=== PATIENT | female | born 1930 | race Caucasian/White ===

== ENCOUNTER 2017-10-23 18:38 | Inpatient (IN) | payer OTHER ==
[2017-10-23] VITALS (7 sets, daily range): BP systolic 142–171; BP diastolic 63–75
[~2017-10-23] VITALS: Ht 162.5 cm; Wt 58.2 kg
--- NOTE | ~2017-10-23 | EKG ---
[place], [place] ELECTROCARDIOGRAM REPORT NAME: LUCY ZULETA UNIT #: [id number] ROOM: 524 DOCTOR: BRITTANY DRAFT REPORT BIRTHDATE: [birth year] [facility] Test Date: 2017-10-24 Test Time: 01:25:04 Pat Name: LUCY ZULETA Department: Room: Gender: F [employer]er: : 1930 Requested By: DEBI BALBUENA Order Number: [id number] Reading MD: Perla Gonzalez MD Measurements Intervals [place] Rate: 94 P: 101 TN: 101 QRS: 44 QRSD: 87 T: -89 QT: 396 QTc: 496 Interpretive Statements Sinus rhythm Short TN interval Abnormal R-wave progression, late transition Probable left ventricular hypertrophy Abnormal T, consider ischemia, diffuse leads Electronically Signed On 10-25-2017 9:37:54 PDT by Perla Gonzalez MD CM:EKGRPT:ELECTROCARDIOGRAM REPORT [id number] DEBI SOTO DRAFT REPORT DEBI BALBUENA MD
--- NOTE | ~2017-10-23 | CON ---
[place], [place] REPORT OF CONSULTATION NAME: LUCY ZULETA UNIT #: [id number] ROOM: 524 DOCTOR: JEREMIAH OLIVAS MDKEVIN BIRTHDATE: [birth year] DOS: 10/25/2017 PULMONARY CONSULTATION, EVALUATION, MANAGEMENT CONSULTATION REQUESTED BY: Lady Hale DO REASON FOR CONSULTATION: Abnormal CT scan finding of respiratory failure. HISTORY OF PRESENT ILLNESS: An 86-year-old white female patient unable to give me any history at this time. The patient has been sleeping. The history essentially continued for this patient in this document is review of the medical record by the other physician documentation as well as a nurse's notes. She has been admitted to the hospital. The patient was brought to the Emergency Room on 10/24/2017 as the patient has been noted with increased shortness of breath, noted with [facility]. She has been admitted to the hospital after she has a left hip fracture surgery that was done about 6 weeks ago. The patient was seen in this hospital and underwent CT scan of chest, abdomen and pelvis as well as the V/Q scan. She was noted with hypoxia and leukocytosis. The chest CT scan of the patient reported evidence of atelectasis and/or infiltration, occlusion left main stem bronchus. The patient has been reported with symptoms of coughing and shortness of breath. There were no symptoms of chest pain, hemoptysis reported. REVIEW OF SYSTEMS: Could not be completed since the patient is currently unable to give me any history at this time. PAST MEDICAL HISTORY: Reported as history of: 1. Chronic obstructive pulmonary disease. 2. History of general anxiety and depression. 3. Right breast cancer, the patient's lumpectomy details were unknown. PAST SURGICAL HISTORY: Reported as: 1. Bilateral cataract extraction with lens implantation. 2. Left hip replacement. 3. Resection of the large bowel, again details were unknown. 4. Right mastectomy. Further details were unknown. SOCIAL HISTORY: The patient was noted with history of tobacco use, which was discontinued in remote past. The details were unknown. There was no alcohol use, illicit drugs. FAMILY HISTORY: Unknown for both parents. MEDICATIONS: On admission noted use of albuterol with a nebulizer p.r.n. for wheezing, Coreg, Plavix, cyproheptadine, ferrous sulfate, Vicodin, Keppra, lorazepam, magnesium hydroxide, magnesium oxide, phenobarbital, and sertraline. ALLERGIES: REPORTED ALLERGY TO SULFA DRUGS. PHYSICAL EXAMINATION: [place], [place] REPORT OF CONSULTATION NAME: LUCY ZULETA UNIT #: [id number] ROOM: 524 DOCTOR: KEVIN HART MD BIRTHDATE: [birth year] GENERAL: An 86-year-old female patient who has been currently noted resting comfortably on the bed. Height of 5 feet 4 inches, weight 133 pounds, BMI 22.3. VITAL SIGNS: Normal temperature since admission. The respiratory rate recorded as 16-20, heart rate of 101-70, blood pressure 128/75-132/58. The pulse oxygen saturation of the patient recorded as 94% on 100% oxygen supplementation nasal cannula. Previous pulse ox saturation noted in the 70s. Pulse oxygen saturation this morning was recorded as 96%-93% on 8 liters on high flow nasal cannula. HEENT: Head was atraumatic. Eyes nonicterus. NECK: Supple. CARDIOVASCULAR: S1, S2 audible. LUNGS: Noted moderate decreased breath sounds bilaterally more on the left than the right side. ABDOMEN: Flat, soft, nontender. EXTREMITIES: There was no edema, clubbing, cyanosis. CENTRAL NERVOUS SYSTEM: Examination could not be done. MUSCULOSKELETAL: The sling noted in place for the patient for the recent right shoulder fracture. LABORATORY DATA: CBC on 10/23/2017, WBC count 17.1, hemoglobin 11.5, hematocrit 36.1, platelet count 407,000. Arterial blood gas for the patient done on 10/23/2017, pH of 7.47, pCO2 of 37, pO2 of 64 50% oxygen. The PT, PTT on 10/23/2017 was normal. BNP was noted 5002. CMP of the patient 10/23/2017, BUN 14, creatinine was normal. Troponin minimally elevated at 0.084. Blood culture 4 sets, which was done on 10/23/2017 so far, all the cultures were noted as negative. CMP this morning, BUN normal, creatinine was normal. Potassium 3.3. IMAGING STUDIES: Review of the radiology data: The chest x-ray that was done on 10/23/2017, just one view was noted left lower lobe area of infiltration with still volume loss. V/Q scan done on 10/24/2017 was noted low probability of pulmonary embolism. CT scan of the chest, abdomen and pelvis done for the patient. CT scan chest images were reported as volume loss with occlusion of the left lower lobe endobronchial subsegments with complete atelectasis at the present time. Right lung was noted as clear. Partial occlusion of the left upper lung bronchus was also noted. Unable to identify for this patient or correctly assess the patient's mediastinal because of lack of the IV contrast. IMPRESSION: 1. The patient who has been currently admitted to the hospital noted with volume loss in the left side with acute severe hypoxic respiratory failure with possibility of atelectasis, superimposed acute pneumonia cannot be excluded. Rule out endobronchial obstruction with mucus plug, purulent secretions and/or endobronchial lesion. 2. The patient with elderly age was also noted by physical appearance of protein-calorie malnutrition. 3. Recent fall with left hip fracture recently treated with surgery and currently treated with conservative treatment for the right shoulder fracture as well. 4. History of chronic obstructive pulmonary disease without evidence of acute exacerbation. [place], [place] REPORT OF CONSULTATION NAME: LUCY ZULETA UNIT #: [id number] ROOM: 524 DOCTOR: KEVIN HART MD BIRTHDATE: [birth year] PLAN OF MANAGEMENT: Continuation of the bronchodilator with oxygen supplementation. Consider reducing dose of diuretic at this time. There were no signs of overt congestive heart failure at this time reported and no pleural fluids. Continuation of current antibiotic. Monitor culture results. Strong consideration for bronchoscopy to be done after consultation primary care attending for this patient as well as discussion with family members about that for assessment of left endobronchial tree. Additional treatment changes will be ordered based on progression of illness. Bronchodilator will be continued to help mobilize secretions. Thank you for allowing me to participate in the care of this patient. KEVIN DANIELS MD CM:CONSTR:REPORT OF CONSULTATION 1139 10/26/17 0016 interface
--- NOTE | ~2017-10-23 | PROC NOTE ---
[place], [place] PROCEDURE NOTE NAME: LUCY ZULETA UNIT #: [id number] ROOM: 524 DOCTOR: JEREMIAH OLIVAS MD,KEVIN BIRTHDATE: [birth year] DOS: 10/28/2017 BRONCHOSCOPY NOTE PREOPERATIVE DIAGNOSES: Atelectasis of the left lung completely noted rather in the left lower lobe and possibly lingula. POSTOPERATIVE DIAGNOSES: Severe purulent pneumonia noted complete occlusion of the left main stem bronchus because of the purulent secretions. There were no endobronchial obstructive lesions. PROCEDURE DESCRIPTION: Informed consent obtained from the patient and family members. The patient brought to the OR and placed in supine position. Conscious sedation administered by the Anesthesia Department. After achieving proper sedation, airway introduced into the mouth. Bronchoscope advanced to the airway into laryngeal area. Epiglottis and vocal cords were seen. Vocal cords were moving symmetrically with movements. Bronchoscope advanced to vocal cord and Tracheal lumen. Tracheal lumen was identified, noted with a copious amount of purulent secretion, which was present in the lower portion of the tracheal lumen, which was suctioned out. Similar secretion causing tracking to the left mainstem bronchus, which was completely occluded with purulent secretion. All secretions suctioned out with half normal saline wash and sent for cultures. Procedure well tolerated by the patient without difficulty. Postoperative findings were discussed with the patient's daughter and her in detail in the recovery room. The patient will be started on vancomycin based on current acute purulent pneumonia with changes in antibiotic and de-escalation done after the final culture results were available. Chest x-ray will be obtained in the morning to reassess the improvement in the atelectasis noted previously. KEVIN DANIELS MD CM:PROCNOTE:PROCEDURE NOTE [id number] KEVIN OLIVAS MD
--- NOTE | ~2017-10-23 | PR ---
[place], [place] PROGRESS NOTE NAME: [id number] UNIT #: [id number] ROOM: 524 DOCTOR: JEREMIAH OLIVAS MD,KEVIN BIRTHDATE: [birth year] DOS: 10/30/2017 SUBJECTIVE: The patient noted comfortable at this time without any acute distress. She has not been noted any ongoing acute respiratory complaints. She has been noted at this time, comfortably resting and noted with some confusion status, but noted awake this morning. She has not reported any symptoms of chest pain. Denies any pain of the lower extremities. Denies symptoms of nausea, vomiting or abdominal pain. The review of systems was limited and was noted negative. OBJECTIVE: VITAL SIGNS: Normal temperature, respiratory rate 18, heart rate 79, blood pressure 121/47. Pulse oxygen saturation on 4 liter nasal cannula 99% saturation. HEENT: Examination shows head was atraumatic. Eyes nonicterus. NECK: Supple. CARDIOVASCULAR: S1, S2 is audible. LUNGS: Decreased breath sounds on the left side as previously. ABDOMEN: Soft, nontender. Bowel sounds present. EXTREMITIES: Noted without any acute edema. MUSCULOSKELETAL: Noted without any acute deformities. CENTRAL NERVOUS SYSTEM: No gross focal deficit. LABORATORY DATA: CBC today: WBC count normal, hemoglobin 9.8, hematocrit 31.0, and platelet count normal. CMP was noted normal BUN and creatinine. Potassium 2.7. CO2 of 38. IMPRESSION: 1. The patient with acute pneumonia that has been noted with isolation of moderate growth of yeast. 2. The patient with pleural fluid on the left side, most likely related to current acute pneumonia. 3. Acute respiratory failure. 4. Hypoxia. 5. Status post hip fracture. 6. Severe debility. PLAN OF MANAGEMENT: Discussion with the family members about the thoracentesis to be done. The nurses have contacted the patient, but they would like to speak with me prior to consideration of thoracentesis. The conference will be done tomorrow morning with them about that. In the meantime, continue the current medical management, except adjusting antibiotic will be done for the patient. Discontinue the vancomycin based on the current culture results. Continuation of the IV meropenem for the patient as the primary antibiotic for the current acute pneumonia. Other supportive therapy, plan of management and care. Her prognosis remains guarded. [place], [place] PROGRESS NOTE NAME: LUCY ZULTEA UNIT #: [id number] ROOM: 524 DOCTOR: KEVIN HART MD BIRTHDATE: [birth year] KEVIN DANIELS MD CM:KEMAR [id number] KEVIN OLIVAS MD 11/14/17 1006 interface
--- NOTE | ~2017-10-23 | PR ---
[place], [place] PROGRESS NOTE NAME: LUCY ZULETA UNIT #: [id number] ROOM: 524 DOCTOR: JEREMIAH OLIVAS MDKEVIN BIRTHDATE: [birth year] DOS: 10/26/2017 SUBJECTIVE: The patient was seen and examined on 10/26/2017. She has been noted awake and alert this morning. Complaining of some shortness of breath and pain in the toes reported by the patient. Denies symptoms of wheezing. Denies symptoms of hemoptysis. The patient has been continued on intravenous antibiotic medical management. REVIEW OF SYSTEMS: The review systems for the patient was noted with pain, which were described in the area of the right hip. The patient denies any pain in the right shoulder. Denies symptoms of nausea, vomiting, diarrhea or any abdominal pain. There was no edema of the lower extremities noted. Remaining systems were reviewed. They were noted all negative. OBJECTIVE: VITAL SIGNS: Normal temperature, respiratory rate 18, heart rate of 58-67, blood pressure 180/76-147/60 and pulse ox saturation on 8 liters high flow nasal cannula ranges between 90%-96% saturation. HEENT: Examination shows head was atraumatic. Eyes nonicterus. NECK: Supple. CARDIOVASCULAR: S1, S2 is audible. LUNGS: Noted without any wheezing or crackles on the right side. Decreased breath sounds are noted, diminished in the left side of the patient. There was no wheezing heard. ABDOMEN: Soft, nontender, bowel sounds present. EXTREMITIES: Without any acute edema. MUSCULOSKELETAL: No gross deformities. SKIN: No lesions or rashes. CENTRAL NERVOUS SYSTEM: The patient noted awake, alert, oriented. LABORATORY DATA: CMP that was done this morning was noted BUN 25, creatinine 0.44. Potassium 3.4. Albumin of 2.4. The urine culture the patient was noted with evidence of Enterococcus faecalis, which are noted penicillin sensitive species. IMPRESSION: 1. The patient was currently noted with atelectasis left lower lobe, possible endobronchial obstruction of the mucosa others. Possibility of superimposed pneumonia has been considered as well. 2. Isolation Enterococcus. The patient could be contamination real infection unknown at this time. 3. The patient with fall, significant debility. Fracture of the hip, recent surgery as well as the fracture of the shoulder, which was treated conservatively. PLAN OF MANAGEMENT: No changes from the pulmonary standpoint. The case has been discussed by Dr. Lady Hale with the patient's daughter, who is also power of county attorney for the patient I believe. Family refused any kind of invasive procedure to be done including bronchoscopy, which specifically us. At [place], [place] PROGRESS NOTE NAME: LUCY ZULETA UNIT #: [id number] ROOM: 524 DOCTOR: JEREMIAH OLIVAS MD,KEVIN BIRTHDATE: [birth year] this time, the patient can be treated conservatively the patient with use of incentive spirometry, bronchodilators and other medical management. Continue empirical use of the antibiotics for suspected pneumonia as well. Other supportive plan of management continued. The patient's code status also obtained from full code to DNRCC arrest. I am not sure the patient specifically has the ordered for no intubation or CPR with that. KEVIN DANIELS MD CM:PNTRANS [id number] KEVIN OLIVAS MD 10/26/17 1110 interface
--- NOTE | ~2017-10-23 | PR ---
[place], [place] PROGRESS NOTE NAME[id number] UNIT #: [id number] ROOM: 524 DOCTOR: JEREMIAH OLIVAS MDKEVIN BIRTHDATE: [birth year] DOS: 10/31/2017 SUBJECTIVE: The patient was seen and examined on 10/31/2017. She has been still noted symptoms of shortness of breath, but there was no coughing reported by the patient. She denies symptoms of chest pain or any acute hemoptysis. The patient has not been reported as symptoms of abdominal pain, nausea, or vomiting. She was noted pain, which has been treated with the pain medication is morphine sulfate. REVIEW OF SYSTEMS: Otherwise the patient was noted limited, but negative. OBJECTIVE: VITAL SIGNS: The patient has been recorded showed normal temperature, respiratory rate of 18, heart rate 73, blood pressure 132/58. Pulse oxygen saturation on 4 liters 96% saturation. HEENT: Shows head was atraumatic. Eyes nonicterus. NECK: Supple. CARDIOVASCULAR: S1, S2 was audible. LUNGS: Noted decreased breath sounds on the left side. Right lung was clear. ABDOMEN: Soft, nontender. Bowel sounds present. EXTREMITIES: Without any clubbing, cyanosis or edema. MUSCULOSKELETAL: Noted without any acute deformities. CENTRAL NERVOUS SYSTEM: At this time, the patient was noted with general weakness and fatigue. SKIN: No lesions or rashes. LABORATORY DATA: BMP today for the patient's potassium 2.7, CO2 of 38. There was no CBC done today. CBC that was done yesterday noted normal WBC count. IMPRESSION: The patient who has been noted with ____ like a complicated pleural fluid as assessed with ultrasound for possible thoracentesis. Thoracentesis was deferred, complicated pleural fluid and will get an opinion from the Interventional Radiology Service. PLAN OF TREATMENT: Thoracentesis could be completed. If thoracentesis will be done, certainly fluid will be sent for the cultures. Prior to thoracentesis, the case was discussed with patient's daughter. She was agreeable for the procedure. The procedure consent was obtained from the patient herself as well. Continuation of the antibiotics as well. Continuation of the medical management, antibiotic and meropenem for the acute pneumonia base and bronchial washing cultures or debility. The patient remains persistent. The prognosis remains guarded. Further treatment changes will be done based on the progression of the illness. Continue pain management use of the morphine, which has been given this patient prior to the thoracentesis to control the pain was noted effective, control pain of the pain. [place], [place] PROGRESS NOTE NAME: LUCY ZULETA UNIT #: [id number] ROOM: 524 DOCTOR: KEVIN HART MD BIRTHDATE: [birth year] KEVIN DANIELS MD CM:KEMAR [id number] KEVIN OLIVAS MD 10/31/17 1616 interface
--- NOTE | ~2017-10-23 | PR ---
[place], [place] PROGRESS NOTE NAME[id number] UNIT #: [id number] ROOM: 524 DOCTOR: GIN MONTEZ DO BIRTHDATE: [birth year] DOS: 11/01/2017 SUBJECTIVE: The patient was seen and examined today. She denies shortness of breath. She does admit to some coughing with no sputum production. She denies any chest pain or hemoptysis. She denies abdominal pain, nausea or vomiting. She was participating in physical therapy just prior to evaluation. She states that she does have an ingrown toenail that she injured during physical therapy and is complaining of pain at the site. No other complaints at this time. OBJECTIVE: VITAL SIGNS: Temperature 98.2, pulse 62, respirations 18, blood pressure 120/42, pulse ox 93% on 4 liters nasal cannula. HEENT: Head is atraumatic. Eyes nonicteric. NECK: Supple. CARDIOVASCULAR: S1 and S2 audible. LUNGS: Decreased breath sounds at the bases. Clear to auscultation. ABDOMEN: Soft, nontender. Bowel sounds present throughout. EXTREMITIES: No clubbing, cyanosis or edema. MUSCULOSKELETAL: No acute deformities. DERMATOLOGICAL: Visible skin, no lesions or rashes. CENTRAL NERVOUS SYSTEM: Cranial nerves grossly intact. LABORATORY DATA: No CBC performed today. BMP: Sodium 138, potassium 3.4, BUN 14, creatinine 0.45. Pleural fluid Gram stain shows moderate white blood cells with no microorganisms. Preliminary culture results are negative for bacterial growth. Gram stain of bronchial washings showed moderate white blood cells, rare gram-positive cocci in pairs, rare gram-negative bacilli, rare budding yeast. Culture results of the bronchial washings positive for a moderate growth of yeast and normal michelle. Urine culture is positive for Enterococcus faecalis, which is sensitive to the current antibiotics. Blood cultures have been negative. IMPRESSION: 1. Acute pneumonia noted with isolation of moderate growth of yeast. 2. Pleural effusion on the left, likely secondary to pneumonia. 3. Acute respiratory failure, now resolved. 4. Severe debility. 5. Status post hip fracture. 6. Hypokalemia. PLAN OF MANAGEMENT: Thoracentesis completed yesterday. Results are transudative. No organisms currently growing in culture. Continue meropenem for 5 days. Chest x-ray will need to be completed in 5-10 days. The patient may be discharged from the pulmonary standpoint. Gin Montez DO [place], [place] PROGRESS NOTE NAME: LUCY ZULETA UNIT #: [id number] ROOM: 524 DOCTOR: GIN MONTEZ DO BIRTHDATE: [birth year] KEVIN DANIELS MD CM:KEMAR 13 [phone] GIN MONTEZ DO 11/01/172050 interface
--- NOTE | ~2017-10-23 | EKG ---
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
--- NOTE | ~2017-10-23 | PR ---
[place], [place] PROGRESS NOTE NAME: LUCY ZULETA UNIT #: [id number] ROOM: 524 DOCTOR: KEVIN HART MD BIRTHDATE: [birth year] DOS: 11/01/2017 SUBJECTIVE: The patient was independently seen and examined, [id number] encounter on 11/01/2017. The physical examination was performed. The labs data was reviewed. The decision of medical management personally made for the patient on today's visit as well. Note done by the director medical surgical was approved as well. The patient underwent thoracentesis yesterday, 300 mL pleural fluid were removed. She has been noted comfortable at this time, resting in the bed. Denies symptoms of coughing, chest pain, or sputum expectoration. She denies symptoms of the wheezing. OBJECTIVE: VITAL SIGNS: Normal temperature, respiratory rate 18, heart rate 62. Blood pressure 120/42. Pulse ox saturation on 4 liters nasal cannula 93% saturation. HEENT: Head was atraumatic. Eye, nonicterus. NECK: Supple. CARDIOVASCULAR: S1, S2 audible. LUNGS: The patient noted without decreased breaths are noted in the left lower lung still present, but improved. There were no wheezing or crackles in the remaining lungs. ABDOMEN: Soft, nontender. EXTREMITIES: No edema. LABORATORY DATA: Review, cell count differential and chemistry was reviewed. The patient noted all consistent with transudative effusion. IMPRESSION: 1. The patient with atelectasis of the left lower lobe with current transudative effusion as well as acute pneumonia, which has been treated with the antibiotics based on culture results. 2. Improving acute hypoxic respiratory failure. PLAN OF TREATMENT: The patient could be transferred to the nursing facility on 5 more days of intravenous antibiotics, which was administered. Followup chest x-ray to be done in the next 7-10 days to reassess the improvement in the aeration of the lung. Chest x-ray post-procedure, thoracentesis at the 300 mL fluid was noted with improvement in the pleural fluid, but still area of atelectasis, infiltration noted in the left lower lobe. [place], [place] PROGRESS NOTE NAME: LUCY ZULETA UNIT #: [id number] ROOM: 524 DOCTOR: KEVIN HART MD BIRTHDATE: [birth year] KEVIN DANIELS MD CM:COURTNEYTRANS [id number] KEVIN OLIVAS MD 11/14/17 1017 interface
--- NOTE | ~2017-10-23 | EKG ---
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
--- NOTE | ~2017-10-23 | PR ---
[place], [place] PROGRESS NOTE NAME: LUCY ZULETA UNIT #: [id number] ROOM: 524 DOCTOR: KEVIN HART MD BIRTHDATE: [birth year] DOS: 10/28/2017 PULMONARY PROGRESS NOTE SUBJECTIVE: The patient is noted comfortable at this time without any acute distress, resting on the bed. She was planned for bronchoscopy done today. She has been noted with some cough, but there was no sputum expectoration. Shortness of breath is still reported at rest. There were no symptoms of abdominal pain, nausea, vomiting or headache. Denies any pain of the lower extremities. The patient remains mostly bedbound. The review of systems was limited, was completed, they were noted all negative. OBJECTIVE: VITAL SIGNS: Which have been recorded showed normal temperature, respiratory rate 15, heart rate 75, blood pressure 156/67, pulse ox saturation on 4 liters nasal cannula and 5 liters 97% and 99% saturation. HEENT: Shows head was atraumatic, eyes nonicterus. NECK: Supple. CARDIOVASCULAR: S1, S2 audible. LUNGS: The patient was noted with decreased breath sounds on the left side as previously noted. ABDOMEN: Soft, nontender. Bowel sounds present. EXTREMITIES: Without any acute edema. VISIBLE SKIN: No lesions or rashes. MUSCULOSKELETAL: Without any acute deformities. CENTRAL NERVOUS SYSTEM: Limited but without any gross focal neurologic deficit. LABORATORY DATA: Platelet function assay was noted abnormal, related to medication use by the patient. PT/PTT were noted as normal. IMPRESSION: 1. The patient with persistent atelectasis in left lung and superimposed pleural fluid was also noted. 2. Acute respiratory failure with hypoxia, remains stable. 3. NPO for bronchoscopy. PLAN OF MANAGEMENT: Proceed with bronchoscopy at this time. Continuation of oxygen supplementation, bronchodilator treatment, plan of management as previously in progress. Consent of the procedure had been given by the family member yesterday after discussion on the phone for the procedure. Continuation of antibiotic for suspected pneumonia as well as meropenem. Other additional treatment changes will be made for the patient based on progression of the illness and after bronchoscopy. [place], [place] PROGRESS NOTE NAME: LUCY ZULETA UNIT #: [id number] ROOM: 524 DOCTOR: KEVIN HART MD BIRTHDATE: [birth year] KEVIN DANIELS MD CM:KEMAR [id number] KEVIN OLIVAS MD 10/28/17 0930 interface
--- NOTE | ~2017-10-23 | PR ---
[place], [place] PROGRESS NOTE NAME: LUCY ZULETA [facility] #: [id number] UNIT #: [id number] ROOM: 524 DOCTOR: JEREMIAH OLIVAS MD,KEVIN BIRTHDATE: [birth year] DOS: 10/27/2017 PULMONARY PROGRESS NOTE SUBJECTIVE: The patient remains in the hospital. The patient this morning was noted sitting on the chair, complained increased shortness of breath in the last 24 hours. Noted fully awake and alert. She has been noted with some cough, but there was no sputum expectoration. Denies symptoms of chest pain or hemoptysis. Denies symptoms of nausea or vomiting. Denies symptoms of abdominal pain. The patient has not been noted any symptoms of pain of the lower extremities. The appetite was noted fair. There were symptoms of diplopia, general weakness and fatigue was reported. Remaining systems review limited, but noted negative. OBJECTIVE: VITAL SIGNS: Normal temperature, respiratory rate 16, heart rate 86, blood pressure 145/51 - 115/54. Pulse oxygen saturation on 8 liters high flow nasal cannula was 98% saturation. HEENT: Head was atraumatic. Eyes nonicterus. NECK: Supple. CARDIOVASCULAR: S1, S2 is audible. LUNGS: The patient was noted without any wheezing or crackles in the right side. Decreased breath sounds are noted previously in the left lower lobe area. ABDOMEN: Soft, nontender. Bowel sounds present. EXTREMITIES: The patient was noted without any acute edema, clubbing or cyanosis. CENTRAL NERVOUS SYSTEM: Cranial nerves 2-12 intact. No focal deficits. General weakness was noted. SKIN: No lesions or rashes. MUSCULOSKELETAL: Without an acute deformity. LABORATORY DATA: BUN noted normal, creatinine was normal today. Potassium 3.1. CBC this morning, WBC count 10.9, hemoglobin 9.8, hematocrit 31.1, platelet count was normal. The chest x-ray that was done on 10/27/2017 was noted PA lateral view with possible interval developments of pleural fluid with persistent area of atelectasis left lower lobe was noted. Small right pleural fluid was also suspected. IMPRESSION: 1. The patient who has been currently noted with acute respiratory failure with hypoxia, remains persistent with complete left lower lobe with possibly mucous impaction, endobronchial obstruction to be excluded. 2. The patient with overall debility. 3. Recent fracture of the hip and past surgery for the patient as well. 4. Anemia, most likely chronic disease. PLAN OF MANAGEMENT: The case has been discussed with patient's daughter in detail about the further medical management. She was suggested fibrobronchoscopy that in my opinion it could be done safely with gentle conscious sedation. It would be helpful to extract any mucous ____ would also to inspect the endobronchial tree for any obstruction. After discussion risk [place], [place] PROGRESS NOTE NAME: LUCY ZULETA UNIT #: [id number] ROOM: 524 DOCTOR: JEREMIAH OLIVAS MD,KEVIN BIRTHDATE: [birth year] and the benefit, they were agreeing to give the consent for procedure which is planned to be done in the morning. In the meantime, continue oxygen supplementation, bronchodilators, antibiotics and other treatment as in progress, usual care, other supportive plan of therapy and care plan. Additional treatment changes to be made for this patient based on the progression of the illness. The assessment and management was also discussed with Dr. Crain, who is the attending of this patient today. KEVIN DANIELS MD CM:PNTRANS [id number] KEVIN OLIVAS MD 10/27/17 1700 interface
--- NOTE | ~2017-10-23 | EKG ---
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
--- NOTE | ~2017-10-23 | PR ---
[place], [place] PROGRESS NOTE NAME: [facility]TA [id number] UNIT #: [id number] ROOM: 524 DOCTOR: JEREMIAH OLIVAS MD,KEVIN BIRTHDATE: [birth year] DOS: 10/29/2017 PULMONARY PROGRESS NOTE SUBJECTIVE: The patient was noted comfortable at this time, resting on the bed. She has has been noted that drowsy and sleepy this morning, the daughter was present at bedside with the patient, she has bronchoscopy completed yesterday for the patient with copious amount of mucopurulent material removed from the endobronchial tree. The procedure well tolerated by the patient. She has been using oxygen supplementation this morning with nasal cannula. Unable to give medication because of valproic medication was lacking. OBJECTIVE: VITAL SIGNS: The patient at noon has normal temperature, respiratory rate 20, heart rate of 84 and blood pressure 138/54. The pulse oxygen saturation of the patient recorded as 96% saturation 5 liters nasal cannula. HEENT: Showed no new change. NECK: Supple. CARDIOVASCULAR: S1, S2 audible. LUNGS: Right side was noted clear. Decreased breath sounds still noted in the left lung. ABDOMEN: Soft, nontender, bowel sounds present. EXTREMITIES: Without any acute changes. MUSCULOSKELETAL: Without any acute deformities. CENTRAL NERVOUS SYSTEM: Change in mental status. SKIN: No lesions or rashes. LABORATORY DATA: Chest x-ray of patient shows evidence of pleural fluid with possible consolidation noted. Right lung was noted clear today. There were no pleural fluid noted in the right side. The preliminary culture of the bronchial washing shows as normal michelle. The Gram stain bronchial washings yesterday, moderate white blood cells, rare gram-positive cocci in pairs, gram-negative bacilli and budding yeast. IMPRESSION: 1. The patient with acute persistent hypoxic respiratory failure with acute severe pneumonia, possibility associated pleural fluid noted as well. 2. The patient with change in mental status, which has noted variable in different etiology. 3. Severe debility. 4. Recent hip fracture as well. PLAN OF MANAGEMENT: Assess the patient closely at this time. Ultrasound of the chest will be performed tomorrow morning for the patient to assess any pleural fluid if present. The patient was noted quite weak and frail and this patient at this time unable to cough. The patient has clear secretion. Bronchoscopy resulted in marked clearance of the purulent secretion, which noted copious amount complete occlusion of the left main stem bronchus noted was cleared out yesterday. Her prognosis remains guarded. The patient will be continued on vancomycin and intravenous Zosyn with changes antibiotic done based on the [place], [place] PROGRESS NOTE NAME: LUCY ZULETA UNIT #: [id number] ROOM: 524 DOCTOR: JEREMIAH OLIVAS MD,KEVIN BIRTHDATE: [birth year] culture results of the bronchial washings as well. KEVIN DANIELS MD CM:PNTRANS 02 7 KEVIN OLIVAS MD 10/30/17 0706 interface
--- NOTE | ~2017-10-23 | CON ---
[place], [place] REPORT OF CONSULTATION NAME: LUCY ZULETA UNIT #: [id number] ROOM: 524 DOCTOR: RADHA ZAMORA MD BIRTHDATE: [birth year] DOS: 10/25/2017 CHIEF COMPLAINT: Right hip pain. HISTORY OF PRESENT ILLNESS: This is a pleasant 86-year-old female who was admitted to the hospital with shortness of breath and hypoxia. She also has a urinary tract infection. She had right hip intramedullary nail fixation for proximal femur fracture performed at an outside facility. I do not have the medical records available to me. Family thinks it was 3 months ago. She since has had another fall and suffered fractures of both of her pelvis. She also has a proximal left humerus fracture. The patient is resting comfortably in bed. Pain is moderate, about 3-5 on a scale of 1-10 with 10 being the worst. Pain is actually worse in the left shoulder. Rest makes it feel better. Activity makes it feel worse. She has been weightbearing as tolerated on both legs per the family, but has a lot of pain across the right leg recently. PAST MEDICAL AND SURGICAL HISTORY: 1. Anemia. 2. Anxiety. 3. History of breast cancer. 4. Chronic obstructive pulmonary disease. 5. Depression. 6. Bilateral cataract surgery. 7. Status post right hip intramedullary nailing. 8. Status post large bowel resection. 9. Status post mastectomy. SOCIAL HISTORY: No tobacco use, no illicit drug use. ALLERGIES: To medicines, SULFA. DAILY MEDICATIONS: Please see the nurse's notes. REVIEW OF SYSTEMS: A 12-point review of systems is conducted and is negative except for pertinent positives listed in the history of present illness. PHYSICAL EXAMINATION: GENERAL APPEARANCE: Well. She appeared to be oriented to person, place and time. Her mood is euthymic. Her affect is appropriate. EXTREMITIES: I examined the right hip. Skin is intact. Thigh is soft. Some tenderness to palpation over the right greater trochanter. No tenderness to palpation over the right knee. No tenderness to palpation over the right ankle. I examined the left leg. Skin is intact about the left hip. Left thigh is soft and compressible. She is tender to palpation over the left hip over the greater trochanter. No tenderness to palpation over the left knee. [place], [place] REPORT OF CONSULTATION NAME: LUCY ZULETA UNIT #: [id number] ROOM: 524 DOCTOR: RADHA ZAMORA MD BIRTHDATE: [birth year] I examined the left shoulder. Skin is intact. She is tender over the proximal humerus. CT scan of the pelvis is available for my review. CT scan shows a fixated right intertrochanteric femoral neck fracture with hardware and fracture near anatomic alignment. There are superior and inferior pubic rami fracture bilaterally with more displacement on the right. Plain film x-rays are pending. ASSESSMENT: An 86-year-old female with left proximal humerus fracture, right proximal femur fracture, status post intramedullary nailing, and bilateral pubic rami fractures with more displacement on the right. Certainly, she has 3/4 limbs involved. At her age, with these medical comorbidities, this is a very high risk for a poor outcome. Risks to include , blood clot, pulmonary embolus, infection, deconditioning, mental status changes, balance problems, another fall, and other risks. Family is aware of the high risk of complication. I did not identify specific surgical indication. The surgical plan for the left proximal humerus was nonoperative treatment and I will likely continue that. Plain films are pending. For weightbearing status of her pelvis, I would have her be nonweightbearing on the right and touchdown weightbearing on the left to start. Again, plain films are pending. She is certainly in need of DVT prophylaxis and I will defer to the primary medical service on this issue. She should work with physical therapy to mobilize as best as she can. The patient and family had the opportunity to ask me questions. They understand and agree with the treatment plan as I have outlined it. Radha Zamora MD CM:CONSTR:REPORT OF CONSULTATION 1504 10/26/17 0111 interface
[2017-10-23 19:00] LABS: BASO # 0.1 10*3/uL (0.0-0.1); BASO % 0.5 % (0.0-1.0); EOS # 0.2 10*3/uL (0.0-0.4); EOS % 1.1 % (1.0-4.0); HEMATOCRIT 36.1 % (37.0-47.0); HEMOGLOBIN 11.5 g/dl (12.0-16.0); LYMPH # 1.2 10*3/uL (1.3-4.4); LYMPH % 6.9 % (27.0-41.0); MEAN CELL VOLUME 97.6 fl (81.0-99.0); MEAN CORPUSCULAR HGB 31.1 pg (27.0-31.0); MEAN CORPUSCULAR HGB CONC 31.9 g/dl (33.0-37.0); MEAN PLATELET VOLUME 9.2 fl (9.6-12.3); MONO % 5.7 % (3.0-9.0); NEUT # 14.6 10*3/uL (2.3-7.9); NEUT % 85.4 % (47.0-73.0); PLATELET COUNT AUTOMATED 407 10*3/uL (130-400); RED CELL DISTRI WIDTH 16.4 % (0-14.5); WHITE BLOOD COUNT 17.1 10*3/uL (4.8-10.8)
[2017-10-23 19:10] LABS: ABG BASE EXCESS 4.2 mmol/L (-2.0-2.0); ABG HCO3 27.5 mmol/l (22-26); ABG O2 SATURATION 93.7 % (95-97); ARTERIAL BLOOD GAS PCO2 37.3 mmHg (35-45); ARTERIAL BLOOD GAS PH 7.479 (7.35-7.45); ARTERIAL BLOOD GAS PO2 64.2 mmHg (80-90)
[2017-10-23 19:10] LABS: ACT PARTIAL THROMBO TIME 29.5 SECONDS (20.8-31.5)
[2017-10-23 19:19] LABS: ALBUMIN 3.1 gm/dl (3.1-4.5); BUN 14 mg/dl (7-24); CHLORIDE 99 mmol/L (98-107); CREATININE 0.45 mg/dL (0.55-1.02); POTASSIUM 4.1 mmol/L (3.5-5.1); SGOT/AST 21 IU/L (3-35); SGPT/ALT 44 U/L (12-78); SODIUM 137 mmol/L (136-145); TOTAL PROTEIN 6.2 gm/dL (6.4-8.2)
[2017-10-23 19:21] LABS: ALKALINE PHOSPHATASE 134 U/L (45-117)
[2017-10-23 19:23] LABS: TROPONIN I 0.084 ng/ml (<0.045)
[2017-10-23 19:29] LABS: BILIRUBIN NEGATIVE (NEGATIVE); BLOOD TRACE-INTACT (NEGATIVE); CLARITY CLOUDY (CLEAR); COLOR YELLOW (YELLOW); GLUCOSE NEGATIVE (NEGATIVE); KETONE NEGATIVE (NEGATIVE); LEUKO ESTERASE 3+ (NEGATIVE); NITRITE NEGATIVE (NEGATIVE); PH 7.5 (5.0-9.0); SPECIFIC GRAVITY <= 1.005 (1.005-1.030)
[2017-10-23 19:45] LABS: BACTERIA 1+; WBC TNTC wbc/hpf (0-5)
[2017-10-23] MEDS ORDERED: GOOD NEIGHBOR650 MG PO (23:13)
[2017-10-23] MEDS ORDERED: Clopidogrel75 MG PO (23:14)
[2017-10-23] MEDS ORDERED: ALBUTEROL2.5 MG/0.5 INH (23:14)
[2017-10-23] MEDS ORDERED: COREG3.125 MG PO (23:16)
[2017-10-23] MEDS ORDERED: COLACE100 MG PO (23:16)
[2017-10-23] MEDS ORDERED: CYPROHEPTADINE H4 M1 PO (23:17)
[2017-10-23] MEDS ORDERED: FEROSUL325 MG PO (23:18)
[2017-10-23] MEDS ORDERED: ATIVAN0.5 MG PO (23:21)
[2017-10-23] MEDS ORDERED: KEPPRA750 MG PO (23:21)
[2017-10-23] MEDS ORDERED: HYDROCODONE-AC1 EAC1 PO (23:21)
[2017-10-23] MEDS ORDERED: MAGNESIUM400 M1 PO (23:23)
[2017-10-23] MEDS ORDERED: MILK OF MA400 MG/5 M PO (23:24)
[2017-10-23] MEDS ORDERED: SERTRALINE HYD100 MG PO (23:25)
[2017-10-23] MEDS ORDERED: PHENOBARBITAL64.8 MG PO (23:25)
[2017-10-24] VITALS: BP 158/73
[2017-10-24 04:00] VITALS: BP 158/73
[2017-10-24 04:40] LABS: ABG BASE EXCESS 3.5 mmol/L (-2.0-2.0); ABG HCO3 26.8 mmol/l (22-26); ABG O2 SATURATION 92.5 % (95-97); ARTERIAL BLOOD GAS PCO2 36.4 mmHg (35-45); ARTERIAL BLOOD GAS PH 7.477 (7.35-7.45); ARTERIAL BLOOD GAS PO2 62.6 mmHg (80-90)
[2017-10-24 06:38] LABS: HEMATOCRIT 38.1 % (37.0-47.0); HEMOGLOBIN 12.1 g/dl (12.0-16.0); MEAN CELL VOLUME 97.9 fl (81.0-99.0); MEAN CORPUSCULAR HGB 31.1 pg (27.0-31.0); MEAN CORPUSCULAR HGB CONC 31.8 g/dl (33.0-37.0); MEAN PLATELET VOLUME 9.4 fl (9.6-12.3); PLATELET COUNT AUTOMATED 404 10*3/uL (130-400); RED BLOOD COUNT 3.89 10*6/uL (4.10-5.10); RED CELL DISTRI WIDTH 16.4 % (0-14.5); WHITE BLOOD COUNT 23.1 10*3/uL (4.8-10.8)
[2017-10-24 07:00] LABS: BUN 13 mg/dl (7-24); CHLORIDE 97 mmol/L (98-107); CREATININE 0.54 mg/dL (0.55-1.02); PHOSPHOROUS 3.9 mg/dL (2.5-4.9); POTASSIUM 3.6 mmol/L (3.5-5.1); SODIUM 135 mmol/L (136-145); TRIGLYCERIDES 87 mg/dl (<150); VLDL CHOLESTEROL 17 mg/dL (6-40)
[2017-10-24 07:08] LABS: CHOLESTEROL 132 mg/dL (<200); HDL CHOLESTEROL 60 mg/dl (40-60); LDL CHOLESTEROL 55 mg/dL (9-159); THYROID STIM HORMONE (HS) 0.548 uIU/ml (0.358-4.75)
[2017-10-24 07:15] LABS: PLATELET SUFFICIENCY NORMAL (NORMAL); TOTAL CELLS COUNTED 100 #CELLS
[2017-10-24 08:00] VITALS: BP 155/75
[2017-10-24 09:09] LABS: VITAMIN D, 25-HYDROXY 29.9 ng/mL (30-100)
[2017-10-24 16:00] VITALS: BP 148/78
[2017-10-24 20:00] VITALS: BP 130/47
[2017-10-25] VITALS: BP 128/75
[2017-10-25 07:22] LABS: ALBUMIN 2.7 gm/dl (3.1-4.5); ALKALINE PHOSPHATASE 127 U/L (45-117); BUN 21 mg/dl (7-24); CHLORIDE 100 mmol/L (98-107); CREATININE 0.45 mg/dL (0.55-1.02); PHOSPHOROUS 3.6 mg/dL (2.5-4.9); POTASSIUM 3.3 mmol/L (3.5-5.1); SGOT/AST 14 IU/L (3-35); SGPT/ALT 26 U/L (12-78); SODIUM 137 mmol/L (136-145)
[2017-10-25 08:00] VITALS: BP 132/58
[2017-10-25 12:00] VITALS: BP 142/75
[2017-10-25 16:00] VITALS: BP 128/50
[2017-10-25 20:03] VITALS: BP 106/42
[2017-10-26] VITALS: BP 108/76
[2017-10-26 06:09] LABS: BASO % 0.3 % (0.0-1.0); EOS # 0.1 10*3/uL (0.0-0.4); EOS % 0.6 % (1.0-4.0); LYMPH # 0.7 10*3/uL (1.3-4.4); LYMPH % 4.6 % (27.0-41.0); MEAN CELL VOLUME 100.7 fl (81.0-99.0); MEAN CORPUSCULAR HGB 31.6 pg (27.0-31.0); MEAN CORPUSCULAR HGB CONC 31.4 g/dl (33.0-37.0); MEAN PLATELET VOLUME 9.5 fl (9.6-12.3); MONO # 1.1 10*3/uL (0.1-1.0); MONO % 7.3 % (3.0-9.0); NEUT # 13.4 10*3/uL (2.3-7.9); NEUT % 86.6 % (47.0-73.0); PLATELET COUNT AUTOMATED 331 10*3/uL (130-400); RED BLOOD COUNT 3.07 10*6/uL (4.10-5.10); RED CELL DISTRI WIDTH 15.7 % (0-14.5); WHITE BLOOD COUNT 15.5 10*3/uL (4.8-10.8)
[2017-10-26 06:13] LABS: HEMATOCRIT 30.9 % (37.0-47.0); HEMOGLOBIN 9.7 g/dl (12.0-16.0)
[2017-10-26 06:34] LABS: ALBUMIN 2.4 gm/dl (3.1-4.5); ALKALINE PHOSPHATASE 125 U/L (45-117); BUN 25 mg/dl (7-24); CHLORIDE 99 mmol/L (98-107); CREATININE 0.44 mg/dL (0.55-1.02); PHOSPHOROUS 3.1 mg/dL (2.5-4.9); POTASSIUM 3.4 mmol/L (3.5-5.1); SGOT/AST 14 IU/L (3-35); SGPT/ALT 26 U/L (12-78); SODIUM 138 mmol/L (136-145)
[2017-10-26 08:00] VITALS: BP 147/60
[2017-10-26 12:00] VITALS: BP 136/65; BP 147/60
[2017-10-26 16:00] VITALS: BP 133/69
[2017-10-26 20:00] VITALS: BP 143/64
[2017-10-27] VITALS: BP 115/54
[2017-10-27 07:12] LABS: BASO # 0.1 10*3/uL (0.0-0.1); BASO % 0.5 % (0.0-1.0); EOS # 0.2 10*3/uL (0.0-0.4); EOS % 1.8 % (1.0-4.0); HEMATOCRIT 31.1 % (37.0-47.0); HEMOGLOBIN 9.8 g/dl (12.0-16.0); LYMPH # 0.8 10*3/uL (1.3-4.4); LYMPH % 7.6 % (27.0-41.0); MEAN CELL VOLUME 99.7 fl (81.0-99.0); MEAN CORPUSCULAR HGB 31.4 pg (27.0-31.0); MEAN CORPUSCULAR HGB CONC 31.5 g/dl (33.0-37.0); MEAN PLATELET VOLUME 9.5 fl (9.6-12.3); MONO # 0.9 10*3/uL (0.1-1.0); MONO % 8.5 % (3.0-9.0); NEUT # 8.9 10*3/uL (2.3-7.9); NEUT % 81.3 % (47.0-73.0); PLATELET COUNT AUTOMATED 339 10*3/uL (130-400); RED BLOOD COUNT 3.12 10*6/uL (4.10-5.10); RED CELL DISTRI WIDTH 15.3 % (0-14.5); WHITE BLOOD COUNT 10.9 10*3/uL (4.8-10.8)
[2017-10-27 07:40] LABS: ALBUMIN 2.4 gm/dl (3.1-4.5); ALKALINE PHOSPHATASE 131 U/L (45-117); BUN 20 mg/dl (7-24); CHLORIDE 99 mmol/L (98-107); POTASSIUM 3.1 mmol/L (3.5-5.1); SGOT/AST 20 IU/L (3-35); SGPT/ALT 25 U/L (12-78); SODIUM 139 mmol/L (136-145)
[2017-10-27 08:00] VITALS: BP 145/56
[2017-10-27 12:00] VITALS: BP 145/51
[2017-10-27 14:02] LABS: ACT PARTIAL THROMBO TIME 36.4 SECONDS (20.8-31.5)
[2017-10-27 16:00] VITALS: BP 139/66
[2017-10-27 20:00] VITALS: BP 110/41
[2017-10-28] VITALS (9 sets, daily range): BP systolic 96–158; BP diastolic 40–76
[2017-10-28 09:15] LABS: BASO # 0.1 10*3/uL (0.0-0.1); BASO % 0.7 % (0.0-1.0); EOS # 0.3 10*3/uL (0.0-0.4); EOS % 2.8 % (1.0-4.0); HEMOGLOBIN 11.1 g/dl (12.0-16.0); LYMPH # 0.9 10*3/uL (1.3-4.4); LYMPH % 9.5 % (27.0-41.0); MEAN CELL VOLUME 100.3 fl (81.0-99.0); MEAN CORPUSCULAR HGB 30.9 pg (27.0-31.0); MEAN CORPUSCULAR HGB CONC 30.8 g/dl (33.0-37.0); MEAN PLATELET VOLUME 9.3 fl (9.6-12.3); MONO % 10.5 % (3.0-9.0); NEUT # 7.3 10*3/uL (2.3-7.9); PLATELET COUNT AUTOMATED 324 10*3/uL (130-400); RED BLOOD COUNT 3.59 10*6/uL (4.10-5.10); RED CELL DISTRI WIDTH 14.8 % (0-14.5); WHITE BLOOD COUNT 9.6 10*3/uL (4.8-10.8)
[2017-10-28 09:35] LABS: ALBUMIN 2.1 gm/dl (3.1-4.5); ALKALINE PHOSPHATASE 135 U/L (45-117); BUN 16 mg/dl (7-24); CHLORIDE 97 mmol/L (98-107); POTASSIUM 3.4 mmol/L (3.5-5.1); SGOT/AST 25 IU/L (3-35); SGPT/ALT 26 U/L (12-78); SODIUM 134 mmol/L (136-145); TOTAL PROTEIN 6.1 gm/dL (6.4-8.2)
[2017-10-29] VITALS: BP 121/59
[2017-10-29 08:00] VITALS: BP 140/78
[2017-10-29 12:00] VITALS: BP 138/54
[2017-10-29 15:03] LABS: ACID FAST SPEC PROCESSING Concentration (.)
[2017-10-29 16:00] VITALS: BP 130/56
[2017-10-29 20:00] VITALS: BP 120/45
[2017-10-30] VITALS: BP 122/44
[2017-10-30 06:55] LABS: BASO # 0.1 10*3/uL (0.0-0.1); BASO % 1.2 % (0.0-1.0); EOS # 0.3 10*3/uL (0.0-0.4); EOS % 5.2 % (1.0-4.0); HEMATOCRIT 31.1 % (37.0-47.0); HEMOGLOBIN 9.8 g/dl (12.0-16.0); LYMPH % 18.2 % (27.0-41.0); MEAN CORPUSCULAR HGB 31.2 pg (27.0-31.0); MEAN CORPUSCULAR HGB CONC 31.5 g/dl (33.0-37.0); MEAN PLATELET VOLUME 10.2 fl (9.6-12.3); MONO # 0.7 10*3/uL (0.1-1.0); MONO % 12.1 % (3.0-9.0); NEUT # 3.6 10*3/uL (2.3-7.9); PLATELET COUNT AUTOMATED 305 10*3/uL (130-400); RED BLOOD COUNT 3.14 10*6/uL (4.10-5.10); RED CELL DISTRI WIDTH 14.7 % (0-14.5); WHITE BLOOD COUNT 5.7 10*3/uL (4.8-10.8)
[2017-10-30 07:25] LABS: ALBUMIN 2.2 gm/dl (3.1-4.5); ALKALINE PHOSPHATASE 136 U/L (45-117); BUN 13 mg/dl (7-24); CHLORIDE 95 mmol/L (98-107); CREATININE 0.41 mg/dL (0.55-1.02); POTASSIUM 2.7 mmol/L (3.5-5.1); SGOT/AST 29 IU/L (3-35); SGPT/ALT 29 U/L (12-78); SODIUM 139 mmol/L (136-145); TOTAL PROTEIN 5.7 gm/dL (6.4-8.2)
[2017-10-30 08:00] VITALS: BP 124/52
[2017-10-30 12:00] VITALS: BP 121/47
[2017-10-30 16:00] VITALS: BP 138/58
[2017-10-30 20:00] VITALS: BP 112/55
[2017-10-31] VITALS: BP 106/46
[2017-10-31 08:00] VITALS: BP 132/58
[2017-10-31 09:36] LABS: ALBUMIN 2.6 gm/dl (3.1-4.5); ALKALINE PHOSPHATASE 166 U/L (45-117); BUN 12 mg/dl (7-24); CHLORIDE 92 mmol/L (98-107); POTASSIUM 2.7 mmol/L (3.5-5.1); SGOT/AST 20 IU/L (3-35); SGPT/ALT 27 U/L (12-78); SODIUM 136 mmol/L (136-145); TOTAL PROTEIN 6.6 gm/dL (6.4-8.2)
[2017-10-31 12:00] VITALS: BP 144/51
[2017-10-31 14:59] LABS: BODY FLUID WBC 1310 /uL
[2017-10-31 15:39] LABS: BF LYMPHOCYTES 61 %; BF MACROPHAGES 1 %; BF MESOTHELIALS 2 %; BF NEUTROPHILS 36 %
[2017-10-31 16:00] VITALS: BP 125/56
[2017-10-31 20:00] VITALS: BP 140/56
[2017-11-01] VITALS: BP 131/49
[2017-11-01 06:33] LABS: BUN 14 mg/dl (7-24); CHLORIDE 97 mmol/L (98-107); CREATININE 0.45 mg/dL (0.55-1.02); PHOSPHOROUS 2.9 mg/dL (2.5-4.9); POTASSIUM 3.4 mmol/L (3.5-5.1); SODIUM 138 mmol/L (136-145)
[2017-11-01 08:00] VITALS: BP 120/42
[2017-11-01 12:00] VITALS: BP 128/42
[2017-11-01] MEDS ORDERED: MUCINEX ER600 MG PO (15:57)
[2017-11-01] MEDS ORDERED: LASIX40 MG PO (15:57)
[2017-11-01] MEDS ORDERED: MERREM IV1 GM IV (15:57)
[2017-11-01 16:00] VITALS: BP 122/57
== END 2017-11-01 17:27 | disposition other institution (70) | DRG 871 ==
LOC: ED 18:38 → 5E 20:51 → EDHOLD 20:51 → 5E 20:51
PROVIDERS: Emergency Medicine; Family Medicine; Internal Medicine; Internal Medicine Critical Care Medicine; Radiology Diagnostic Radiology; Student in an Organized Health Care Education/Training Program
DX: A41.9 Sepsis, unspecified organism (principal); J96.21 Acute and chronic respiratory failure with hypoxia; I26.99 Other pulmonary embolism without acute cor pulmonale; J18.9 Pneumonia, unspecified organism; J44.0 Chronic obstructive pulmonary disease with (acute) lower respiratory infection; I34.0 Nonrheumatic mitral (valve) insufficiency; D64.9 Anemia, unspecified; I50.9 Heart failure, unspecified; E44.1 Mild protein-calorie malnutrition; N39.0 Urinary tract infection, site not specified; E87.1 Hypo-osmolality and hyponatremia; Z66 Do not resuscitate; Z51.5 Encounter for palliative care; F41.1 Generalized anxiety disorder; Z68.22 Body mass index [BMI] 22.0-22.9, adult; Z96.1 Presence of intraocular lens; Z96.642 Presence of left artificial hip joint; E83.41 Hypermagnesemia; F32.9 Major depressive disorder, single episode, unspecified; Z87.440 Personal history of urinary (tract) infections; Z88.2 Allergy status to sulfonamides; Z90.11 Acquired absence of right breast and nipple; Z85.3 Personal history of malignant neoplasm of breast; Z98.41 Cataract extraction status, right eye; Z98.42 Cataract extraction status, left eye; Z79.899 Other long term (current) drug therapy; Y93.89 Activity, other specified

== ENCOUNTER 2018-08-14 03:06 | Inpatient (IN) | payer OTHER, MEDICAID ==
[~2018-08-14] VITALS: Ht 154.9 cm; Wt 56.8 kg
[2018-08-14] VITALS (9 sets, daily range): BP systolic 160–195; BP diastolic 69–96
--- NOTE | ~2018-08-14 | EKG ---
[place], [place] ELECTROCARDIOGRAM REPORT NAME: LUCY ZULETA UNIT #: [id number] ROOM: [facility] DOCTOR: BRITTANY DRAFT REPORT BIRTHDATE: [birth year] [facility] Test Date: 2018-08-14 Test Time: 03:15:48 Pat Name: LUCY ZULETA Department: Room: [facility] Gender: F Scientific Research Associate: Joanna Paulino : 1930 Requested By: LAUREN HUFF Order Number: [id number] Reading MD: Amara Toro Measurements Intervals [place] Rate: 106 P: 90 [place]: 162 QRS: 42 QRSD: 84 T: 235 QT: 313 QTc: 416 Interpretive Statements Sinus tachycardia Ventricular premature complex Probable left atrial enlargement Anterior infarct, old ST depression, consider ischemia, inferior-lateral leads Baseline wander in lead(s) II,III,aVF,V1,V4,V5,V6 Compared to ECG 10/27/2017 13:57:04 Ventricular premature complex(es) now present Myocardial infarct finding now present Possible ischemia now present Sinus rhythm no longer present Short [place] interval no longer present,Left ventricular hypertrophy no longer present Early repolarization no longer present Electronically Signed On 08-14-2018 4:19:45 PDT by Amara Toro CM:EKGRPT:ELECTROCARDIOGRAM REPORT [id number] LAUREN FERRER DRAFT REPORT LAUREN HUFF DO
--- NOTE | ~2018-08-14 | EKG ---
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: Aurelia Joel : 1930 Requested By: LAUREN HUFF Order Number: [id number] Reading MD: Amara Toro Measurements Intervals [place] Rate: 90 P: 141 [place]: 97 QRS: 28 QRSD: 92 T: 256 QT: 390 QTc: 478 Interpretive Statements Sinus or ectopic atrial rhythm Short [place] interval Probable LVH with secondary repol abnrm Compared to ECG 08/14/2018 05:46:29 Ectopic atrial rhythm now present Sinus rhythm no longer present Atrial premature complex(es) no longer present Electronically Signed On 08-15-2018 9:52:41 PDT by Amara Toro CM:EKGRPT:ELECTROCARDIOGRAM REPORT [id number] LAUREN FERRER DRAFT REPORT LAUREN HUFF DO
--- NOTE | ~2018-08-14 | EKG ---
[place], [place] ELECTROCARDIOGRAM REPORT NAME: LUCY ZULETA UNIT #: [id number] ROOM: [facility] DOCTOR: BRITTANY DRAFT REPORT BIRTHDATE: [birth year] [facility] Test Date: 2018-08-14 Test Time: 05:46:29 Pat Name: LUCY ZULETA Department: Room: [facility] Gender: F Front End Driver: Joanna Paulino : 1930 Requested By: LAUREN HUFF Order Number: [id number] Reading MD: Amara Toro Measurements Intervals [place] Rate: 84 P: 60 [place]: 114 QRS: 24 QRSD: 92 T: 232 QT: 384 QTc: 454 Interpretive Statements Sinus rhythm Atrial premature complex Borderline short [place] interval LVH with secondary repolarization abnormality Infero-lateral ST/T changes Compared to ECG 10/27/2017 13:57:04 Atrial premature complex(es) now present Electronically Signed On 08-14-2018 4:20:24 PDT by Amara Toro CM:EKGRPT:ELECTROCARDIOGRAM REPORT [id number] 0420 LAUREN FERRER DRAFT REPORT LAUREN HUFF DO
--- NOTE | ~2018-08-14 | PR ---
[place], [place] PROGRESS NOTE NAME: LUCY ZULETA UNIT #: [id number] ROOM: 515 DOCTOR: KEVIN HART MD BIRTHDATE: [birth year] DOS: 08/15/2018 PULMONARY PROGRESS NOTE SUBJECTIVE: The patient was noted comfortable at this time showing improvement and reduction of the respiratory symptom. Denies symptoms of fevers, chills, coughing or any headache. Denies symptoms of nausea, vomiting, diarrhea, abdominal pain, pain of the lower extremities. Edema of the lower extremity has been resolving. Remaining systems were reviewed, they were noted all negative. OBJECTIVE: VITAL SIGNS: Normal temperature, respiratory rate 20, heart rate of 86, blood pressure 152/80-140/64. Pulse oxygen saturation on 40% oxygen, BiPAP 98% % on 3 liters nasal cannula 97% saturation. Intake for the patient was recorded as 460 mL, 952 mL, negative 492 mL. HEENT: Examination shows head was atraumatic. Eyes nonicterus. NECK: Supple. CARDIOVASCULAR: S1, S2 is audible. LUNGS: Decreased breath sounds in lower portion of the lungs bilaterally. ABDOMEN: Soft, nontender. Bowel sounds present. EXTREMITIES: The patient with mild edema. SKIN: No lesions or rashes. CENTRAL NERVOUS SYSTEM: Cranial nerves 2-12 intact. MUSCULOSKELETAL: Without any acute deformities. CENTRAL NERVOUS SYSTEM: Noted intact. LABORATORY DATA: CBC today was noted as normal. BMP this morning, potassium decreased 3.2, CO2 of 33. IMPRESSION: 1. The patient with acute congestive heart failure, bilateral pleural fluid, area of compression atelectasis, less likely pneumonia. 2. Acute exacerbation of chronic obstructive pulmonary disease as well, respiratory failure secondary to that. PLAN OF MANAGEMENT: Discontinue all the antibiotics at this time. Titrate oxygen to maintain pulse ox 92% or greater, also decrease dose of Solu-Medrol as well with additional treatment changes will be made based on the progression of the illness. Usual care, other therapy, plan of management and care, plan of treatments. [place], [place] PROGRESS NOTE NAME: LUCY ZULETA UNIT #: [id number] ROOM: 515 DOCTOR: KEVIN HART MD BIRTHDATE: [birth year] KEVIN DANIELS MD CM:PNTRANS [id number] KEVIN OLIVAS MD 08/16/18 0004 interface
--- NOTE | ~2018-08-14 | PR ---
[place], [place] PROGRESS NOTE NAME: LUCY ZULETA UNIT #: [id number] ROOM: 515 DOCTOR: KEVIN HART MD BIRTHDATE: [birth year] DOS: 08/16/2018 PULMONARY PROGRESS NOTE SUBJECTIVE: She has been noted comfortable at this time, shows continued improvement and resolution of the acute symptoms of shortness of breath. The patient stated she has been feeling sick after about a month. Mild cough was noted. There were no symptoms of chest pain or fever or chills. OBJECTIVE: VITAL SIGNS: The patient with normal temperature, respiratory rate 18, heart rate of 86. The blood pressure 156/76. HEENT: Examination shows head was atraumatic. Eyes nonicterus. NECK: Supple. CARDIOVASCULAR: S1, S2 is audible. LUNGS: The patient was noted without any wheezing or crackles. Decreased breath sounds in the lower lungs. ABDOMEN: Soft, nontender, bowel sounds present. EXTREMITIES: No acute change. LABORATORY DATA: The chest x-ray done this morning shows significant improvement continued, congestive heart failure. Reduction of the pleural friction markedly on the right side and a small left pleural fluid noted at the present time. BMP: Potassium was 3.1 today. IMPRESSION: The patient with gradual and progressive resolution of the respiratory symptom as well as resolving acute congestive heart failure as well as exacerbation of chronic obstructive pulmonary disease. Improvement in the area of compression atelectasis of lower lungs. PLAN OF THERAPY: No changes in the plan of care from the pulmonary standpoint except discharge planning could be started on oral diuretics and other medications. Other additional treatment changes will be made based on progression of the illness. Usual care. [place], [place] PROGRESS NOTE NAME: LUCY ZULETA UNIT #: [id number] ROOM: 515 DOCTOR: KEVIN HART MD BIRTHDATE: [birth year] KEVIN DANIELS MD CM:PNTRANS [id number] KEVIN OLIVAS MD 08/16/18 2314 interface
--- NOTE | ~2018-08-14 | CON ---
[place], [place] REPORT OF CONSULTATION NAME: LUCY ZULETA UNIT #: [id number] ROOM: 515 DOCTOR: KEVIN HART MD BIRTHDATE: [birth year] DOS: 08/14/2018 PULMONARY CONSULTATION, EVALUATION AND MANAGEMENT REASON FOR CONSULTATION: To assess for pneumonia and other respiratory symptoms, coughing and shortness of breath. HISTORY OF PRESENT ILLNESS: This is an elderly 87-year-old white female, resident of [facility]. The patient stated she has been treated at the prior nursing facility with cough and chest congestion with possibility of acute pneumonia. She has been brought to the hospital. The patient is noted with increased diaphoresis, general weakness and fatigue for the last couple of days. Shortness of breath noted significantly worsened. As the patient was assessed, she is noted with significant labored breathing. Denies symptoms of chest pain. Denies symptoms of hemoptysis. Denies symptoms of chest trauma. REVIEW OF SYSTEMS: CONSTITUTIONAL SYMPTOMS: Fatigue and tiredness reported. Denies symptoms of fever or chills. EYES: Denies burning, redness or tenderness. EARS, NOSE, THROAT SYMPTOMS: Denies sore throat, hoarseness, otalgia, postnasal drainage, or epistaxis. CARDIOVASCULAR SYSTEM: Denies anginal pain, edema or pain of the lower extremities. GASTROINTESTINAL SYMPTOMS: Denies dysphagia, nausea, vomiting, diarrhea, abdominal pain, hematemesis, melena, or hematochezia. SKIN: No lesions or rashes. MUSCULOSKELETAL SYMPTOMS: Denies any joint pain, redness or tenderness. Remaining systems were reviewed, they were noted all negative. PAST MEDICAL HISTORY: Noted with: 1. Previous history of admission to this hospital in 10/2017, was treated for acute pneumonia, pleural fluid, required therapeutic bronchoscopy at that time as well as thoracentesis. 2. COPD. 3. General anxiety and depression. 4. History of right breast cancer with past lumpectomy many years ago. PAST SURGICAL HISTORY: 1. Cataract extraction with lens implantation. 2. Left hip replacement. 3. Resection of large bowel in the past as well; the etiology was unknown. 4. Left thoracentesis done on 10/28/2017. 5. Fiberoptic bronchoscopy done in 10/2017 as well. SOCIAL HISTORY: The patient currently is a resident at a nursing facility. She has been noted with past tobacco use many years ago, not smoking actively for many years. She denies any history of alcohol use or any illicit drugs. [place], [place] REPORT OF CONSULTATION NAME: LUCY ZULETA UNIT #: [id number] ROOM: [facility] DOCTOR: KEVIN HART MD BIRTHDATE: [birth year] FAMILY HISTORY: Unknown by the patient. CURRENT MEDICATIONS: Which were administered on this hospitalization were noted as trazodone, meloxicam, Cymbalta, Mucinex, Keppra, ferrous sulfate, Coreg, Plavix, Lovenox, Pulmicort Respules, albuterol sulfate with nebulizer, Lasix, Protonix, IV vancomycin, IV Zosyn, and Levaquin. Other p.r.n. medications for different symptoms were also ordered. DRUG ALLERGIES: REPORTED ALLERGY TO SULFA DRUGS. PHYSICAL EXAMINATION: GENERAL: This is an 87-year-old elderly female, currently comfortably resting noted in the Intensive Care Unit. VITAL SIGNS: Height is 5 feet 1 inch, weight of 141 pounds, BMI 26.7. Respiratory rate of 24, heart rate 85, blood pressure 185/81. Temperature was normal. Pulse oxygen saturation recorded on four-liter nasal cannula as 95% saturation. With BiPAP use for respiratory distress, the patient has 99% saturation with 40% oxygen. HEENT: Head is atraumatic. Eyes nonicterus. NECK: Supple. CARDIOVASCULAR: S1 and S2 audible. LUNGS: Noted with decreased breaths in the lungs bilaterally with occasional crackles. There was no wheezing. ABDOMEN: Soft, flat, nontender, bowel sounds present. EXTREMITIES: No acute edema. MUSCULOSKELETAL: Without any acute deformities. CENTRAL NERVOUS SYSTEM: Cranial nerves 2 through 12 intact. LABORATORY DATA: The labs reviewed today. CBC that was done this morning on admission - WBC count normal, hemoglobin and hematocrit normal, MCV elevated at 103 with normal platelet count. Lactic acid 1.8, which is normal. [place] [address]. CMP that was done on 08/14/2018 - glucose 134, BUN normal, creatinine was normal. Remaining electrolytes were normal. Arterial blood gas - pH is 7.38, pCO2 of 45, pO2 of 88 on 40% oxygen. Troponins, which were done 2 sets so far were noted all negative. DIAGNOSTIC DATA: Chest x-ray that was done just 1 view shows evidence of bilateral pleural fluid. Possible infiltration of the right lower lobe cannot be completely excluded. IMPRESSION: The patient who has been currently admitted to the hospital noted with: 1. Strong possible consideration for congestive heart failure very likely, less likely to be acute pneumonia at this time. 2. The patient has been noted with normal echocardiogram, ejection fraction in 10/2017. So, congestive heart failure would be considered so far, as congestive heart failure with preserved ejection fraction. 3. The patient with multiple other medical problems known previously in the past history as reported. 4. The patient with respiratory distress and respiratory failure with hypoxia, [place], [place] REPORT OF CONSULTATION NAME: LUCY ZULETA UNIT #: [id number] ROOM: [facility] DOCTOR: JEREMIAH OLIVAS MD,KEVIN BIRTHDATE: [birth year] related to current acute congestive heart failure very likely. PLAN OF MANAGEMENT: The patient is getting very broad-spectrum intravenous antibiotic. The antibiotic will be discontinued as soon as the results of the culture become available in the next 24-48 hours, preliminary culture results. Diuretic will be given to help improve congestive heart failure as well. Consideration for Cardiology consultation should be given as well. Lasix is given 40 mg b.i.d. Monitor kidney function very closely, chest x-ray, ultrasound assessment of pleural fluid. At this time, no immediate thoracentesis will be done. Other supportive therapy plan of management. Additional treatment changes will made based on progression of illness. Continue DVT prophylaxis. Supportive care, therapy plan of management and care plan and treatment. Thank you for allowing me to participate in the care of this patient. KEVIN DANIELS MD CM:CONSTR:REPORT OF CONSULTATION 1149 08/24/18 1008 interface
[~2018-08-14 03:06] MED LIST: ALBUTEROL2.5 MG/0.5 INH; ATIVAN0.5 MG PO; COLACE100 MG PO; COREG3.125 MG PO; CYPROHEPTADINE H4 M1 PO; Clopidogrel75 MG PO; FEROSUL325 MG PO; GOOD NEIGHBOR650 MG PO; HYDROCODONE-AC1 EAC1 PO; KEPPRA750 MG PO; LASIX40 MG PO; MAGNESIUM400 M1 PO; MERREM IV1 GM IV; MILK OF MA400 MG/5 M PO; MUCINEX ER600 MG PO; PHENOBARBITAL64.8 MG PO; SERTRALINE HYD100 MG PO
[2018-08-14 03:53] LABS: BASO # 0.1 10*3/uL (0.0-0.1); BASO % 0.6 % (0.0-1.0); EOS % 0.2 % (1.0-4.0); HEMATOCRIT 40.8 % (37.0-47.0); HEMOGLOBIN 13.3 g/dl (12.0-16.0); LYMPH # 1.1 10*3/uL (1.3-4.4); LYMPH % 11.8 % (27.0-41.0); MEAN CELL VOLUME 103.8 fl (81.0-99.0); MEAN CORPUSCULAR HGB 33.8 pg (27.0-31.0); MEAN CORPUSCULAR HGB CONC 32.6 g/dl (33.0-37.0); MEAN PLATELET VOLUME 9.1 fl (9.6-12.3); MONO # 0.7 10*3/uL (0.1-1.0); MONO % 7.5 % (3.0-9.0); NEUT # 7.2 10*3/uL (2.3-7.9); NEUT % 79.6 % (47.0-73.0); PLATELET COUNT AUTOMATED 307 10*3/uL (130-400); RED BLOOD COUNT 3.93 10*6/uL (4.10-5.10); RED CELL DISTRI WIDTH 12.9 % (0-14.5); WHITE BLOOD COUNT 9.1 10*3/uL (4.8-10.8)
[2018-08-14 04:03] LABS: ACT PARTIAL THROMBO TIME 28.3 SECONDS (20.8-31.5)
[2018-08-14 04:11] LABS: ALBUMIN 3.6 gm/dl (3.1-4.5); ALKALINE PHOSPHATASE 116 U/L (45-117); BUN 17 mg/dl (7-24); CHLORIDE 102 mmol/L (98-107); POTASSIUM 4.2 mmol/L (3.5-5.1); SGOT/AST 15 IU/L (3-35); SGPT/ALT 35 U/L (12-78); SODIUM 137 mmol/L (136-145); TOTAL PROTEIN 7.4 gm/dL (6.4-8.2)
[2018-08-14 04:12] LABS: TROPONIN I 0.029 ng/ml (<0.045)
--- NOTE | 2018-08-14 04:58 | NUR ---
NURSE TO NURSE REPORT GIVEN TO NURSE HANDY AT [facility].
--- NOTE | 2018-08-14 05:15 | NUR ---
A 87, admitted to ICCU, under the services of LEONEL Vieira DO with a diagnosis of PNEUMONIA. Chief complaint is SHORTNESS OF BREATH. Patient arrived via stretcher from ER. Monitor applied. Initial assessment completed. Vital signs taken and recorded. LEONEL VIEIRA DO notified of admission to the unit. Orders received. See assessment for past medical history, medications and allergies. Patient and/or family oriented to unit. [facility] ICCU visitation policy reviewed. Clothing/patient valuable form completed. CLEM AGUILERA
--- NOTE | 2018-08-14 05:15 | NUR ---
A 87, admitted to ICCU, under the services of LEONEL Vieira DO with a diagnosis of RESP FAILURE, PNEUMONIA. Chief complaint is SHORTNESS OF BREATH. Patient arrived via stretcher from ER. Monitor applied. Initial assessment completed. Vital signs taken and recorded. LEONEL VIEIRA DO notified of admission to the unit. Orders received. See assessment for past medical history, medications and allergies. Patient and/or family oriented to unit. [facility] ICCU visitation policy reviewed. Clothing/patient valuable form completed. JOSUÉ VICTOR
[2018-08-14] MEDS ORDERED: ADVAIR 250/501 EA INH (05:35)
[2018-08-14] MEDS ORDERED: AVEENO ANTI IT T (05:37)
[2018-08-14] MEDS ORDERED: BENGAY ULTRA S1 EACH T (05:40)
[2018-08-14] MEDS ORDERED: CYMBALTA30 MG PO (05:42)
[2018-08-14] MEDS ORDERED: HYDROXYZINE HCL25 MG PO (05:45)
[2018-08-14] MEDS ORDERED: ANTI-DIARRHEA2 MG PO (05:49)
[2018-08-14] MEDS ORDERED: LOTRISONE 0.05%45 GM T (05:49)
[2018-08-14] MEDS ORDERED: LOTRISONE CREAM15 GM T (05:51)
[2018-08-14] MEDS ORDERED: MEDROL DOSEPAK4 MG PO (05:54)
[2018-08-14] MEDS ORDERED: MOBIC7.5 MG PO (05:55)
[2018-08-14 05:57] LABS: ABG BASE EXCESS 1.7 mmol/L (-2.0-2.0); ABG HCO3 26.8 mmol/l (22-26); ARTERIAL BLOOD GAS PCO2 45.2 mmHg (35-45); ARTERIAL BLOOD GAS PH 7.388 (7.35-7.45); ARTERIAL BLOOD GAS PO2 88.4 mmHg (80-90)
[2018-08-14] MEDS ORDERED: GERI-MOX ANTAC355 ML PO (06:00)
[2018-08-14] MEDS ORDERED: NORCO 5-325 TA1 EACH PO (06:01)
[2018-08-14] MEDS ORDERED: OMEPRAZOLE D/R20 MG PO (06:02)
[2018-08-14] MEDS ORDERED: OMEPRAZOLE MAGN20 MG PO (06:02)
[2018-08-14] MEDS ORDERED: MIRALAX119 GM PO (06:05)
[2018-08-14] MEDS ORDERED: ROBAXIN-750750 MG PO (06:05)
[2018-08-14] MEDS ORDERED: SEROQUEL25 MG PO (06:06)
[2018-08-14] MEDS ORDERED: TRAZODONE50 MG PO (06:07)
[2018-08-14] MEDS ORDERED: TUMS200 MG PO (06:08)
[2018-08-14] MEDS ORDERED: TRAMADOL HCL50 MG PO ×2 (06:09→06:11)
[2018-08-14] MEDS ORDERED: ZOFRAN4 MG PO (06:10)
--- NOTE | 2018-08-14 06:44 | NUR ---
DR. DANIELS NOTIFIED OF CONSULT.
--- NOTE | 2018-08-14 07:14 | NUR ---
Shift chart check completed.24 HR chart check completed.
[2018-08-14] MEDS ORDERED: FUROSEMIDE40 MG PO (07:22)
[2018-08-14] MEDS ORDERED: TYLENOL325 M1 PO (07:29)
--- NOTE | 2018-08-14 07:31 | NUR ---
MEDICATIONS RECONCILED WITH CARE HOME RECORDS.
[2018-08-14 08:03] LABS: VITAMIN D, 25-HYDROXY 30.6 ng/mL (30-100)
--- NOTE | 2018-08-14 08:33 | NUR ---
ON ASSESSMENT PATIENT IS ALERT, ORIENTED, ABLE TO MAKE HER NEEDS KNOWN. BIPAP TAKEN OFF AND NASAL O2 APPLIED AT 4L/MIN. SHE'S INCONTINENT OF URINE PLUS ABLE TO USE BEDPAN. SPECIMENS OBTAINED ORDERED. SHE WAS GIVEN TYLENOL 650MG FOR GENERALIZED DISCOMFORT. DR DANIELS HAS VISITED. SEE ALL APPROPRIATE INTERVENTIONS.
--- NOTE | 2018-08-14 13:06 | NUR ---
24 HR chart check completed.
--- NOTE | 2018-08-14 13:16 | NUR ---
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 Patient is ok to return when medically stable for discharge.
--- NOTE | 2018-08-14 16:30 | NUR ---
PT TRANSFERRED FROM ICU AT THIS TIME. REPORT RECEIVED FROM GEMMA RECIO RN VIA PHONE. FAMILY AT BEDSIDE. ASSESSMENT COMPLETED. ALL NEEDS MET. CALL LIGHT IN REACH.
--- NOTE | 2018-08-14 19:30 | NUR ---
ARRIVED TO FLOOR, REPORT RECIEVED FROM OFF GOING NURSE, INTORDUCED SELF TO PATIENT. BOARD UPDATED. REMINDED PATIENT ON USE OF CALL LIGHT. NO NEEDS VOICED AT THIS TIME.
--- NOTE | 2018-08-14 23:10 | NUR ---
Pt placed on NIV at this time with continuous pulse oximeter in place. Tolerating well.
[2018-08-15] VITALS: BP 140/64
--- NOTE | 2018-08-15 08:23 | NUR ---
Shift chart check completed.
--- NOTE | 2018-08-15 09:00 | NUR ---
case management visits with patient, patient is a prison resident of [facility] and will return when medically stable for discharge
[2018-08-15 09:01] LABS: BASO # 0.1 10*3/uL (0.0-0.1); BASO % 0.7 % (0.0-1.0); EOS % 0.4 % (1.0-4.0); HEMATOCRIT 40.9 % (37.0-47.0); HEMOGLOBIN 13.3 g/dl (12.0-16.0); LYMPH % 13.7 % (27.0-41.0); MEAN CELL VOLUME 102.8 fl (81.0-99.0); MEAN CORPUSCULAR HGB 33.4 pg (27.0-31.0); MEAN CORPUSCULAR HGB CONC 32.5 g/dl (33.0-37.0); MEAN PLATELET VOLUME 9.5 fl (9.6-12.3); MONO # 0.8 10*3/uL (0.1-1.0); MONO % 10.3 % (3.0-9.0); NEUT # 5.6 10*3/uL (2.3-7.9); NEUT % 74.6 % (47.0-73.0); PLATELET COUNT AUTOMATED 274 10*3/uL (130-400); RED BLOOD COUNT 3.98 10*6/uL (4.10-5.10); RED CELL DISTRI WIDTH 13.2 % (0-14.5); WHITE BLOOD COUNT 7.5 10*3/uL (4.8-10.8)
[2018-08-15 09:10] LABS: BUN 14 mg/dl (7-24); CHLORIDE 97 mmol/L (98-107); CREATININE 0.92 mg/dL (0.55-1.02); SODIUM 136 mmol/L (136-145)
[2018-08-15 09:24] LABS: POTASSIUM 3.2 mmol/L (3.5-5.1)
[2018-08-15 09:39] VITALS: BP 152/80
[2018-08-15 12:00] VITALS: BP 156/74
[2018-08-15 16:00] VITALS: BP 153/77
--- NOTE | 2018-08-15 17:58 | NUR ---
PATIENT C/O HEARTBURN REQUESTED A TUMS, 1/2 OF 500MG TAB.
[2018-08-15 20:00] VITALS: BP 122/64; BP 158/88
--- NOTE | 2018-08-15 20:00 | NUR ---
BEDSIDE REPORT RECEIEVED FROM SHERRY TAVAREZ, INTRODUCED TO PATIENT UPDATED WHITE BOARD. DENIES ANY QUESTIONS OR CONCERNS AT THIS TIME.
--- NOTE | 2018-08-15 22:30 | NUR ---
PATIENT HAD GOOD RELIEF FROM TUMS
[2018-08-16] VITALS: BP 154/76
[2018-08-16 06:02] LABS: BASO # 0.1 10*3/uL (0.0-0.1); BASO % 0.9 % (0.0-1.0); EOS # 0.1 10*3/uL (0.0-0.4); HEMATOCRIT 39.8 % (37.0-47.0); HEMOGLOBIN 12.8 g/dl (12.0-16.0); LYMPH # 1.5 10*3/uL (1.3-4.4); MEAN CELL VOLUME 103.6 fl (81.0-99.0); MEAN CORPUSCULAR HGB 33.3 pg (27.0-31.0); MEAN CORPUSCULAR HGB CONC 32.2 g/dl (33.0-37.0); MEAN PLATELET VOLUME 9.3 fl (9.6-12.3); MONO # 0.9 10*3/uL (0.1-1.0); MONO % 13.5 % (3.0-9.0); NEUT # 3.9 10*3/uL (2.3-7.9); NEUT % 60.4 % (47.0-73.0); PLATELET COUNT AUTOMATED 256 10*3/uL (130-400); RED BLOOD COUNT 3.84 10*6/uL (4.10-5.10); RED CELL DISTRI WIDTH 13.2 % (0-14.5); WHITE BLOOD COUNT 6.4 10*3/uL (4.8-10.8)
[2018-08-16 06:17] LABS: BUN 16 mg/dl (7-24); CHLORIDE 100 mmol/L (98-107); POTASSIUM 3.1 mmol/L (3.5-5.1); SODIUM 140 mmol/L (136-145)
[2018-08-16 07:50] VITALS: BP 140/72
[2018-08-16] MEDS ORDERED: PREDNISONE10 MG PO (10:59)
--- NOTE | 2018-08-16 11:08 | NUR ---
case management received a message that patient is being discharged back to [facility] today, contacted preston Plaza from [facility] and informed her that patient is being discharged back to the facility today and if patient needed a precert to return, informed her that patient has no skilled needs at this time, Mela stated patient did not need a precert to return.
--- NOTE | 2018-08-16 11:16 | NUR ---
case management contacted [facility] ambulance, asked for transport of patient at 1pm today back to [facility], they will pick patient up in the hospital at 1pm, notified nursing unit
--- NOTE | 2018-08-16 11:19 | NUR ---
case management attempted to contact patient's daughter Darby to notify her that patient is being transported to [facility] today, daughter did not answer, voicemail left with details of the transfer
--- NOTE | 2018-08-16 15:36 | NUR ---
Discharge instructions reviewed with patient/family. Patient receptive and verbalizes understanding. Follow-up care arranged. Written instructions given to patient/family, FACITLITY. TELE REMOVED. ISABELL POLANCO
== END 2018-08-16 15:36 | DRG 871 ==
LOC: ED 03:06 → EDHOLD 04:45 → ICCU 04:45 → 5E 04:45 → ICCU 04:49 → 5E 16:28
PROVIDERS: Emergency Medicine; Family Medicine; Internal Medicine; Student in an Organized Health Care Education/Training Program; ADMIT Emergency Medicine
PROC: 5A09357 Assistance with Respiratory Ventilation, Less than 24 Consecutive Hours, Continuous Positive Airway Pressure (ICD-10-PCS; principal; 2018-08-14)
PROC: 5A09357 Assistance with Respiratory Ventilation, Less than 24 Consecutive Hours, Continuous Positive Airway Pressure (ICD-10-PCS; 2018-08-15)
PROC: 5A09357 Assistance with Respiratory Ventilation, Less than 24 Consecutive Hours, Continuous Positive Airway Pressure (ICD-10-PCS; 2018-08-16)
DX: A41.9 Sepsis, unspecified organism (principal); J18.9 Pneumonia, unspecified organism; J96.22 Acute and chronic respiratory failure with hypercapnia; J96.21 Acute and chronic respiratory failure with hypoxia; I50.33 Acute on chronic diastolic (congestive) heart failure; J44.1 Chronic obstructive pulmonary disease with (acute) exacerbation; J44.0 Chronic obstructive pulmonary disease with (acute) lower respiratory infection; J98.11 Atelectasis; Z96.1 Presence of intraocular lens; Z96.642 Presence of left artificial hip joint; R65.20 Severe sepsis without septic shock; E83.41 Hypermagnesemia; F41.1 Generalized anxiety disorder; R73.9 Hyperglycemia, unspecified; F32.9 Major depressive disorder, single episode, unspecified; Z88.2 Allergy status to sulfonamides; Z87.440 Personal history of urinary (tract) infections; Z85.3 Personal history of malignant neoplasm of breast; Z90.49 Acquired absence of other specified parts of digestive tract; Z90.11 Acquired absence of right breast and nipple; Z87.891 Personal history of nicotine dependence; Z79.899 Other long term (current) drug therapy; Z98.49 Cataract extraction status, unspecified eye; Z87.01 Personal history of pneumonia (recurrent)

== ENCOUNTER 2018-08-27 05:37 | Inpatient (IN) | payer OTHER, MEDICAID ==
[2018-08-27] VITALS (8 sets, daily range): BP systolic 140–190; BP diastolic 50–124
[~2018-08-27] VITALS: Ht 154.9 cm; Wt 56.8 kg
--- NOTE | ~2018-08-27 | CON ---
[place], [place] REPORT OF CONSULTATION NAME: LUCY ZULETA UNIT #: [id number] ROOM: 407 DOCTOR: JEREMIAH OLIVAS MDKEVIN BIRTHDATE: [birth year] DOS: 08/27/2018 PULMONARY CONSULTATION, EVALUATION, AND MANAGEMENT CONSULTATION REQUESTED BY: Hospitalist services. REASON FOR CONSULTATION: To assess the patient for acute respiratory symptoms, shortness of breath with respiratory failure. HISTORY OF PRESENT ILLNESS: This is an 87-year-old white female patient, who is a resident of a nursing facility. The patient presented to the Emergency Room and hospitalized under the care of the hospitalist services, requested for consultation because of the patient's increased symptoms of shortness of breath. The patient presented to the Emergency Room because of shortness of breath, which has been increased significantly. She was also noted with elevation of the ____ as well. The patient has been assessed in the Emergency Room, underwent CT of the chest. She has been admitted to the hospital for further medical management. She was also given Solu-Medrol, bronchodilators as well. This morning of assessment, she was reporting reduction of the respiratory symptoms since admission. She still has been noted with symptoms of shortness of breath that was present at rest as well. She does report symptoms of coughing. There were no symptoms of chest pain stated by the patient. Denies symptoms of acute chest pain or angina pain. Hospitalization: Last hospitalization, the patient was treated in 08/2018 and discharged on 08/17/2018 for further medical management of congestive heart failure at that time. PAST MEDICAL HISTORY: Known with: 1. COPD. 2. General anxiety and depression. 3. Right breast lumpectomy several years ago for the breast cancer. 4. Congestive heart failure, possibly diastolic dysfunction. PAST SURGICAL HISTORY: Noted as: 1. Cataract extraction, lens implantation. 2. Left hip surgery. 3. Resection of the large bowel. 4. Left thoracentesis done on 10/28/2017. 5. Fibrobronchoscopy that was done in 10/2017 as well. CURRENT MEDICATIONS: Current medications administered was noted as Keppra, Protonix, Lovenox 60 mg b.i.d. as 1 mg/kg body weight dose, Solu-Medrol 60 mg q.8 hours, aspirin, Plavix, DuoNeb q.4 hours, Levaquin, and other medications. DRUG ALLERGIES: NOTED ALLERGIES TO SULFA DRUGS. SOCIAL HISTORY: The patient is a resident of a penitentiary, long time. There is no history of alcohol use. She has been known with tobacco use in the past, discontinued several years ago. There is no history of illicit drug use. [place], [place] REPORT OF CONSULTATION NAME: LUCY ZULETA UNIT #: [id number] ROOM: 407 DOCTOR: KEVIN HART MD BIRTHDATE: [birth year] FAMILY HISTORY: Not remembered by the patient. REVIEW OF SYSTEMS: CONSTITUTIONAL SYMPTOMS: Fatigue and tiredness noted without any symptoms of fever or chills. EYES: Denies burning, redness, or tenderness. EARS, NOSE, AND THROAT SYMPTOMS: No sore throat, hoarseness, otalgia, posterior drainage, or epistaxis. CARDIOVASCULAR SYSTEM: Denies angina pain, edema, or pain of the lower extremities. GASTROINTESTINAL SYMPTOMS: No dysphagia, nausea, vomiting, diarrhea, abdominal pain, hematemesis, melena, or hematochezia. SKIN: Denies abnormal lesions or rashes. CENTRAL NERVOUS SYSTEM: Denies dizziness, headache, diplopia, or syncopal episodes. The remaining systems were reviewed with the patient and they were noted all negative. PHYSICAL EXAMINATION: GENERAL: The patient is an 87-year-old female patient, currently resting comfortably this morning of assessment, has used the BiPAP earlier, currently using oxygen supplementation with the nasal cannula. The patient's height was recorded on admission as 5 feet 1 inch, weight of 140 pounds, and BMI of 26. VITAL SIGNS: The patient has normal temperature since admission early this morning, the respiratory rate, 32 is the highest currently noted 22; heart rate of 130 on admission and currently noted at 107. The blood pressure is 190/124 and this morning is 142/90. The pulse oxygen saturation is ranging between 95% and 98% saturation with the use of CPAP or BiPAP. HEENT: On examination, head was atraumatic. Eyes nonicterus. NECK: Supple. CARDIOVASCULAR SYSTEM: S1, S2 is audible. LUNGS: Noted with decreased breath sounds in the lungs noted bilaterally with expiratory wheezing. There were no crackles. ABDOMEN: Soft, nontender. Bowel sounds present. EXTREMITIES: Noted with mild edema in bilateral lower extremities at this time. VISIBLE SKIN: Without any lesions or rashes. CENTRAL NERVOUS SYSTEM: Noted intact. LABORATORY DATA: CBC of 08/27/2018, WBC count is 16.2, hemoglobin is normal, hematocrit is normal, and platelet count is normal. The lactic acid is 1.5 this morning as well. In the Emergency on admission, the CMP of the patient essentially noted completely normal. Troponin is minimally elevated at 0.10. The BNP was elevated at 7,228. The PT and PTT was noted as normal this morning as well. The troponin, second set at 08:44 is 0.148. Arterial blood gas this morning, pH is ____, pCO2 is 44, and pO2 is 50.7. IMAGING DATA: The chest x-ray shows bilateral pleural fluid, which was noted [place], [place] REPORT OF CONSULTATION NAME: LUCY ZULETA UNIT #: [id number] ROOM: 407 DOCTOR: KEVIN HART MD BIRTHDATE: [address] of the chest does not show any evidence of pulmonary embolism. Small bilateral pleural fluid noted in area of compression atelectasis. There was no evidence of acute pulmonary infiltration. Severe emphysema changes noted in the lungs bilaterally. IMPRESSION: 1. Acute congestive heart failure, possibly consideration of pulmonary edema and bilateral pleural fluid. In addition to that, the patient has also noted acute exacerbation of chronic obstructive pulmonary disease as well. There was no evidence of acute pneumonia. 2. Leukocytosis, most likely induced by the current stress, congestive heart failure is very likely. 3. Past history of nicotine abuse. 4. History of breast cancer many years ago, lumpectomy. 5. Overall debility with recent hospitalization, readmitted to the hospital for the acute exacerbation of chronic obstructive pulmonary disease and the congestive heart failure. PLAN OF MANAGEMENT: Continue current dose of Solu-Medrol 60 mg q.8 hours ____ reduction done afterwards. BiPAP would be used, setting of 12/8 as ordered. The patient need to continue at nighttime for the medical management of current respiratory failure management and chronic obstructive pulmonary disease as well as congestive heart failure. Diuretic therapy. The patient was also noted abnormal troponin at his time, significance is unknown, may be demand ischemia versus non-ST segment elevation myocardial infarction, currently treated empirically for that with therapeutic Lovenox 1 mg/kg 12-hour dosing. Monitor chest x-ray at this time. The pleural fluid is noted small, at this time would not require any thoracentesis unless it enlarges. Titrate oxygen supplementation, maintain pulse ox 92% or greater with additional treatment changes will be made based on progression of the illness. Consider discussion of antibiotic in the next 24 hours, if all the culture, which has been taken come back as negative. Supportive therapy, plan and management. Additional treatment changes will be made based on progression of the illness. KEVIN DANIELS MD CM:CONSTR:REPORT OF CONSULTATION 1525 08/28/18 0333 interface
--- NOTE | ~2018-08-27 | ST ---
[place], [place] EXERCISE STRESS TEST REPORT NAME: [facility]UCY [facility]ULETA [id number] UNIT #: [id number] ROOM: 407 DOCTOR: LETICIA FOSS MD BIRTHDATE: [birth year] DOS: 08/30/2018 LEXISCAN STRESS EKG REPORT REFERRING PHYSICIAN: Dr. Lyn. INDICATIONS: Central chest pain, elevated troponin, non-ST elevation myocardial infarction. The patient underwent standard protocol Lexiscan stress EKG. The patient's baseline EKG showed normal sinus with nonspecific ST-T wave changes. The patient's baseline heart rate is 96 with a blood pressure of 128/80. The patient's peak heart rate was 102 with a blood pressure of 148/86. The patient had no chest pain, no ischemic changes. No arrhythmias aside from PVCs. SUMMARY OF FINDINGS: Unremarkable Lexiscan stress EKG. Please see separate report for perfusion scan imaging results. LETICIA FOSS MD CM:STRESS:EXERCISE STRESS TEST REPORT [id number] LETICIA FOSS MD
--- NOTE | ~2018-08-27 | PR ---
[place], [place] PROGRESS NOTE NAME: LUCY ZULETA UNIT #: [id number] ROOM: 407 DOCTOR: KEVIN HART MD BIRTHDATE: [birth year] DOS: 08/30/2018 PULMONARY ADDENDUM NOTE SUBJECTIVE: The patient is independently seen and examined in [id number] encounter, history was confirmed. Physical examination performed. Labs were personally reviewed. The note done by the medical collections, was approved. Assessment and management of the patient today's visit were personally completed. as the patient was n.p.o. and planned for stress testing to be done today. She has not been noted symptoms of fever or chills. There were no symptoms of chest pain reported by the patient. Shortness of breath was noted better. She had been using the BiPAP that was ordered intermittently during the day, continue at nighttime at this time oxygen supplementation. PHYSICAL EXAMINATION: GENERAL APPEARANCE: The patient is currently lying in the bed this morning of assessment. VITAL SIGNS: Normal temperature, respiratory rate of 20, heart rate 87, blood pressure 160/90. The pulse oxygen saturation recorded as 96% on 4 liters nasal cannula. HEENT: Examination shows head was atraumatic. Eyes nonicterus. NECK: Supple. CARDIOVASCULAR SYSTEM: S1, S2 audible. LUNGS: Decreased breaths in lower portion of the lungs bilaterally. ABDOMEN: Soft, nontender. Bowel sounds present. EXTREMITIES: Noted without any acute edema. LABORATORY DATA: Chest x-ray that was done this morning, was reviewed, shows evidence of senile kyphosis with resolution of the pleural fluids. IMPRESSION: 1. Resolving acute respiratory symptoms including acute exacerbation of chronic obstructive pulmonary disease, congestive heart failure, currently considered for stress testing to be done today. 2. Anxiety disorder. PLAN OF MANAGEMENT: Decrease Solu-Medrol 40 mg daily dosing. Continuation of bronchodilator. Proceed with further cardiac assessment. Continue the BiPAP and oxygen use . [place], [place] PROGRESS NOTE NAME: LUCY ZULETA UNIT #: [id number] ROOM: 407 DOCTOR: KEVIN HART MD BIRTHDATE: [birth year] KEVIN DANIELS MD CM:PNTRANS 1154 [id number] KEVIN OLIVAS MD 08/31/18 0938 interface
--- NOTE | ~2018-08-27 | PR ---
[place], [place] PROGRESS NOTE NAME: LUCY ZULETA UNIT #: [id number] ROOM: 407 DOCTOR: BINA VELIZ DO BIRTHDATE: [birth year] DOS: 09/01/2018 PULMONARY PROGRESS NOTE SUBJECTIVE: The patient states that her breathing is better today. The patient states that she feels like she is ready to go home. The patient denies shortness of breath, coughing, chest pain or sputum production. The patient's anxiety is better controlled today. OBJECTIVE: VITAL SIGNS: The patient's temperature is 97.3, pulse 85, respiratory rate 18, blood pressure 140/70, the patient is 99% on 4 liters by nasal cannula. HEENT: Normocephalic, atraumatic. Eyes nonicteric. NECK: Supple, nontender, trachea midline. CARDIOVASCULAR: S1, S2 audible. LUNGS: Clear to auscultation without any wheezes or crackles at this time. ABDOMEN: Soft, nontender. Bowel sounds are present. EXTREMITIES: No acute clubbing, cyanosis, or edema. NEUROLOGIC: Grossly intact. LABORATORY DATA AND IMAGING: The patient had a cardiac stress test that showed a reversible area of ischemia. ASSESSMENT: 1. Acute congestive heart failure. 2. Anxiety. 3. Chronic obstructive pulmonary disease. 4. Coronary artery disease. PLAN: At this point, no changes in her pulmonary care. Discharge planning per Pulmonology. We started with the patient to be continued on steroids taper upon discharge and continue diuretics per Cardiology. Any other change will be based on progression of illness. Gutierrez Veliz DO [place], [place] PROGRESS NOTE NAME: LUCY ZULETA UNIT #: [id number] ROOM: 407 DOCTOR: BINA VELIZ DO BIRTHDATE: [birth year] KEVIN DANIELS MD CM:PNTRANS 1202 [id number] BINA VELIZ DO 09/01/18 1734 interface
--- NOTE | ~2018-08-27 | EKG ---
[place], [place] ELECTROCARDIOGRAM REPORT NAME: LUCY ZULETA UNIT #: [id number] ROOM: 407 DOCTOR: BRITTANY DRAFT REPORT BIRTHDATE: [birth year] [facility] Test Date: 2018-08-27 Test Time: 12:08:01 Pat Name: LUCY ZULETA Department: Room: 407 Gender: F Evaporator: VERITO : 1930 Requested By: KYAW EM Order Number: [id number] Reading MD: Perla Gonzalez MD Measurements Intervals [place] Rate: 102 P: 92 TX: 123 QRS: 28 QRSD: 85 T: 205 QT: 336 QTc: 438 Interpretive Statements Sinus tachycardia Atrial premature complex Probable LVH with secondary repol abnrm Compared to ECG 08/14/2018 12:50:12 Atrial premature complex(es) now present Ectopic atrial rhythm no longer present Short [place] interval no longer present Electronically Signed On 09-01-2018 9:27:54 PDT by Perla Gonzalez MD CM:EKGRPT:ELECTROCARDIOGRAM REPORT [id number] 6 KYAW FERRER DRAFT REPORT KYAW EM DO
--- NOTE | ~2018-08-27 | PR ---
[place], [place] PROGRESS NOTE NAME: LUCY ZULETA UNIT #: [id number] ROOM: 407 DOCTOR: KEVIN HART MD BIRTHDATE: [birth year] DOS: 08/28/2018 PULMONARY PROGRESS NOTE SUBJECTIVE: She was complaining of increased shortness of breath this morning. Denies symptoms of fever or chills. The cough has been noted mild. There was no sputum expectoration. Denies symptoms of chest pain or any hemoptysis. Denies symptoms of nausea, vomiting or diarrhea. Denies pain of the lower extremity. Denies any symptoms of diplopia. Remaining systems were reviewed, they were noted all negative. OBJECTIVE: VITAL SIGNS: Normal temperature, respirations 20, heart rate 86, blood pressure 140/82. Pulse oxygen saturation on 4 liters nasal cannula was 100% saturation. HEENT: Shows head was atraumatic, eyes nonicterus. NECK: Supple. CARDIOVASCULAR: S1 and S2 audible. LUNGS: Decreased breath sounds noted in the lungs bilaterally. Wheezing was present. There were no crackles. ABDOMEN: Soft, nontender. Bowel sounds present. EXTREMITIES: Without any acute edema. MUSCULOSKELETAL: Without any acute deformities. CENTRAL NERVOUS SYSTEM: Cranial nerves were noted intact. IMPRESSION: The patient has been currently noted with symptoms of shortness of breath, result of ongoing chronic obstructive pulmonary disease as well as congestive heart failure as well with pleural fluid and area of compression atelectasis. There was no evidence of acute pneumonia noted at the present time. PLAN OF MANAGEMENT: Decrease Solu-Medrol dose from 60 mg q. 8 hours to 60 mg b.i.d. Discontinue antibiotics at this time. BiPAP was ordered in the setting of 03/16 to be used p.r.n. during the day, continuous at nighttime. Monitor ____ as well because of the diuretic therapy. Other additional treatment changes will be made based on progression of the illness. [place], [place] PROGRESS NOTE NAME: LUCY ZULETA UNIT #: [id number] ROOM: 407 DOCTOR: KEVIN HART MD BIRTHDATE: [birth year] KEVIN DANIELS MD CM:PNTRANS [id number] KEVIN OLIVAS MD 08/28/18926 interface
--- NOTE | ~2018-08-27 | PR ---
[place], [place] PROGRESS NOTE NAME: LUCY ZULETA UNIT #: [id number] ROOM: 407 DOCTOR: BINA VELIZ DO BIRTHDATE: [birth year] DOS: 08/31/2018 PULMONARY PROGRESS NOTE INTERNAL HISTORY: The patient states that she feels much better today. The patient states that her breathing is back to baseline. The patient states that from a breathing standpoint, she feels like she could go home. The patient denies hemoptysis, nausea, vomiting or diarrhea. OBJECTIVE: VITAL SIGNS: The patient's temperature is 98, pulse 78, respiratory rate 18. The patient is 99% on 4 liters via nasal cannula. HEENT: Normocephalic, atraumatic. Eyes nonicteric. NECK: Supple, nontender, trachea midline. CARDIOVASCULAR: S1, S2 audible, regular rate and rhythm. LUNGS: Decreased breath sounds bilaterally. ABDOMEN: Soft, nontender, bowel sounds present. EXTREMITIES: No clubbing, cyanosis or edema. MUSCULOSKELETAL: No acute deformities CENTRAL NERVOUS SYSTEM: DICTATION ENDS HERE Gutierrez Veliz, DO KEVIN DANIELS MD CM:KEMAR [id number] BINA VELIZ DO 08/31/18 1445 interface
--- NOTE | ~2018-08-27 | EKG ---
[place], [place] ELECTROCARDIOGRAM REPORT NAME: LUCY ZULETA UNIT #: [id number] ROOM: 407 DOCTOR: BRITTANY DRAFT REPORT BIRTHDATE: [birth year] [facility] Test Date: 2018-08-27 Test Time: 05:59:09 Pat Name: LUCY ZULETA Department: Room: 407 Gender: F Utilization Review Coordinator: : 1930 Requested By: KYAW ME Order Number: [id number] Reading MD: Perla Gonzalez MD Measurements Intervals [place] Rate: 114 P: 80 ME: 124 QRS: 27 QRSD: 79 T: 197 QT: 275 QTc: 379 Interpretive Statements Sinus tachycardia Multiple ventricular premature complexes Anteroseptal infarct, old Nonspecific repol abnormality, diffuse leads Compared to ECG 08/14/2018 12:50:12 Ventricular premature complex(es) now present Myocardial infarct finding now present Ectopic atrial rhythm no longer present Short ME interval no longer present Electronically Signed On 09-01-2018 9:27:05 PDT by Perla Gonzalez MD CM:EKGRPT:ELECTROCARDIOGRAM REPORT [id number] KYAW FERRER DRAFT REPORT KYAW EM DO
--- NOTE | ~2018-08-27 | PR ---
[place], [place] PROGRESS NOTE NAME: LUCY ZULETA UNIT #: [id number] ROOM: 407 DOCTOR: JEREMIAH OLIVAS MD,KEVIN BIRTHDATE: [birth year] DOS: 09/01/2018 PULMONARY PROGRESS NOTE The patient is independently seen and examined in [id number] encounter, history was confirmed, physical examination performed, labs were reviewed. Note done by the regional medical director was approved. The assessment and management for today's note was personally completed. SUBJECTIVE: The patient is noted comfortable at this time, resting on the bed this morning. OBJECTIVE: VITAL SIGNS: Which were recorded show normal temperature, respiratory rate 18, heart rate of 85, blood pressure 140/70. Pulse oxygen saturation was noted on four liters nasal cannula as 99% saturation. HEENT: Head is atraumatic. Eyes nonicterus. NECK: Supple. CARDIOVASCULAR: S1 and S2 audible. LUNGS: Without any wheezes or crackles. ABDOMEN: Soft, nontender. Bowel sounds present. EXTREMITIES: No acute change. IMPRESSION: 1. Progressive resolution of acute exacerbation of chronic obstructive pulmonary disease, resolved. 2. Congestive heart failure, improved. 3. Resolution of pleural fluids, radiologically and clinically. PLAN OF TREATMENT: Discharge the patient home on oral medications as assessed today by the primary care physician from a pulmonary standpoint. Outpatient followup could be established. KEVIN DANIELS MD CM:PNTRANS [phone] KEVIN OLIVAS MD 09/02/18 0701 interface
--- NOTE | ~2018-08-27 | PR ---
[place], [place] PROGRESS NOTE NAME: LUCY ZULETA UNIT #: [id number] ROOM: 407 DOCTOR: KEVIN HART MD BIRTHDATE: [birth year] DOS: 08/31/2018 PULMONARY PROGRESS NOTE SUBJECTIVE: The patient is independently seen and examined, including hvap-[id number] encounter, history was confirmed. Physical examination performed. Labs were reviewed. Note done by the medical referral coordinator, was approved. The assessment of the patient was personally completed. She has been doing very well at this time, current medical management and underwent cardiac stress test yesterday. Denies symptoms of shortness of breath, coughing, chest pain or any sputum expectoration. The anxiety level noted better controlled. OBJECTIVE: VITAL SIGNS: For the patient the temperature was recorded as normal, respiratory rate 18, heart rate 81, blood pressure 151/54. The pulse oxygen saturation was recorded as 98% saturation on 4 liters nasal cannula. HEENT: Examination shows head was atraumatic. Eyes nonicterus. NECK: Supple. CARDIOVASCULAR: S1, S2 is audible. LUNGS: The patient was noted without any wheezing or crackles at the present time. ABDOMEN: Soft, nontender. Bowel sounds present. EXTREMITIES: No acute change. LABORATORY DATA: The chest x-ray yesterday noted resolution of pleural fluid. IMPRESSION: 1. The patient with marked improvement was continued with acute congestive heart failure, progressively and gradually with current medical management. 2. Generalized anxiety disorder. 3. Resolving acute exacerbation of chronic obstructive pulmonary disease. PLAN OF MANAGEMENT: No change in pulmonary standpoint. Discharge planning could be started with conversion of the steroids to oral medication upon discharge. Continue diuretics and other cardiac recommendation medical management of congestive heart failure. Usual care. [place], [place] PROGRESS NOTE NAME: LUCY ZULETA UNIT #: [id number] ROOM: 407 DOCTOR: KEVIN HART MD BIRTHDATE: [birth year] KEVIN DANIELS MD CM:PNTRANS [phone] KEVIN OLIVAS MD 09/01/18 0056 interface
--- NOTE | ~2018-08-27 | PR ---
[place], [place] PROGRESS NOTE NAME: LUCY ZULETA UNIT #: [id number] ROOM: 407 DOCTOR: BINA VELIZ DO BIRTHDATE: [birth year] DOS: 08/30/2018 PULMONARY PROGRESS NOTE SUBJECTIVE AND INTERVAL HISTORY: The patient states that she is hungry. The patient states that she would like coffee. The patient states that her throat is still a little sore. The patient states that overall her breathing is a little bit better. The patient denies hemoptysis, nausea, vomiting, or diarrhea. OBJECTIVE: VITAL SIGNS: Temperature 98.1, pulse is 87, respiratory rate 20, blood pressure 160/90, and she is 96% on 4 liters by nasal cannula. HEENT: Normocephalic, atraumatic. Eyes nonicteric. NECK: Supple, nontender, trachea midline. CARDIOVASCULAR: S1, S2 audible, regular rate and rhythm. LUNGS: Decreased breath sounds bilaterally with mild expiratory wheezes. ABDOMEN: Soft, nontender, bowel sounds present. EXTREMITIES: No clubbing, cyanosis or edema. MUSCULOSKELETAL: Without acute deformities. CENTRAL NERVOUS SYSTEM: Cranial nerves 2-12 grossly intact. No focal neurologic deficits. ASSESSMENT: 1. Chronic obstructive pulmonary disease. 2. Congestive heart failure. 3. Small pleural effusion with dependent compressive atelectasis. PLAN: The patient's respiratory distress is improved. The patient will be continued on Xanax. I agree with the continued diuretic therapy. Continue with Solu-Medrol at current dose. Any additional changes will be based upon progression of illness. Gutierrez Veliz DO [place], [place] PROGRESS NOTE NAME: LUCY ZULETA UNIT #: [id number] ROOM: 407 DOCTOR: BINA VELIZ DO BIRTHDATE: [birth year] KEVIN DANIELS MD CM:PNTRANS [id number] BINA VELIZ DO 08/30/18 1734 interface
--- NOTE | ~2018-08-27 | EKG ---
[place], [place] ELECTROCARDIOGRAM REPORT NAME: LUCY ZULETA UNIT #: [id number] ROOM: 407 DOCTOR: BRITTANY DRAFT REPORT BIRTHDATE: [birth year] [facility] Test Date: 2018-08-27 Test Time: 08:36:55 Pat Name: LUCY ZULETA Department: Room: 407 Gender: F Leadership Development Instructor: Valeri Gonzalez : 1930 Requested By: KYAW EM Order Number: [id number] Reading MD: Perla Gonzalez MD Measurements Intervals [place] Rate: 101 P: 82 SC: 140 QRS: 4 QRSD: 85 T: 192 QT: 331 QTc: 429 Interpretive Statements Sinus tachycardia Ventricular premature complex Probable LVH with secondary repol abnrm Compared to ECG 08/14/2018 12:50:12 Ventricular premature complex(es) now present Ectopic atrial rhythm no longer present Short SC interval no longer present Electronically Signed On 09-01-2018 9:27:09 PDT by Perla Gonzalez MD CM:EKGRPT:ELECTROCARDIOGRAM REPORT 6 KYAW FERRER DRAFT REPORT KYAW EM DO
--- NOTE | ~2018-08-27 | PR ---
[place], [place] PROGRESS NOTE [id number] UNIT #: [id number] ROOM: 407 DOCTOR: JEREMIAH OLIVAS MD,KEVIN BIRTHDATE: [birth year] DOS: 08/29/2018 PULMONARY PROGRESS NOTE The patient is independently seen and examined in hszi-[id number] encounter, history was confirmed, physical examination performed, labs were reviewed. Note done by the medical billing and coding specialist was approved as well. Assessment and management for today's note was personally completed. SUBJECTIVE: The patient has been currently sitting on the bed, complaining of symptoms of shortness of breath. The cough has been noted mild, without any sputum expectoration. No symptoms of chest pain, no edema or pain of the lower extremities stated by the patient. Denies symptoms of nausea, vomiting, diarrhea, abdominal pain, hematemesis, melena or hematochezia. Remaining systems were reviewed, they were noted all negative. She has used BiPAP at nighttime and p.r.n. during the day at this time. OBJECTIVE: GENERAL: The patient is currently resting on the bed, in no acute major distress, complaining of shortness of breath, but does not show any signs of tachypnea. VITAL SIGNS: This morning, normal temperature, respiratory rate 18, heart rate 67, blood pressure 116/74. The pulse oxygen saturation recorded on four liters nasal cannula as 97% saturation. HEENT: Examination shows head is atraumatic. Eyes nonicterus. NECK: Supple. CARDIOVASCULAR: S1 and S2 audible. LUNGS: Without any wheezing or crackles. Breaths are noted diminished in the lower portion of the lungs bilaterally. ABDOMEN: Soft, nontender. Bowel sounds present. EXTREMITIES: No acute changes. MUSCULOSKELETAL: Without acute deformity. SKIN: No lesions or rashes. CENTRAL NERVOUS SYSTEM: Intact. LABORATORY DATA: CMP is normal this morning. CBC this morning noted as normal CBC. DIAGNOSTIC DATA: Echocardiogram noted left ventricular ejection fraction of 50% with diastolic dysfunction. IMPRESSION: 1. Recurrent acute congestive heart failure with diastolic dysfunction. 2. Anxiety disorder is also noted, resulting in shortness of breath which was experienced by the patient at rest with current maximal medical management. 3. The patient with acute exacerbation of chronic obstructive pulmonary disease. 4. Compressive atelectasis of the left lower lung, secondary to pleural effusions. There was no evidence of acute pneumonia. [place], [place] PROGRESS NOTE NAME: LUCY ZULETA UNIT #: [id number] ROOM: 407 DOCTOR: JEREMIAH OLIVAS MD,KEVIN BIRTHDATE: [birth year] PLAN OF MANAGEMENT: The patient will be ordered Xanax to help overcome the anxiety. Continue the use of BiPAP, diuretic therapy, bronchodilators, and other medical management. Supportive care, other therapy plan of treatment. Obtain a chest x-ray tomorrow morning to assess the progression of pleural fluid. Other therapy plan of management, additional treatment changes will be recommended based on progression of the illness. KEIVN DANIELS MD CM:PNTRANS [phone] KEIVN OLIVAS MD 08/30/18 0351 interface
--- NOTE | ~2018-08-27 | PR ---
[place], [place] PROGRESS NOTE NAME: LUCY ZULETA UNIT #: [id number] ROOM: 407 DOCTOR: BINA VELIZ DO BIRTHDATE: [birth year] DOS: 08/29/2018 PULMONARY PROGRESS NOTE SUBJECTIVE AND INTERVAL HISTORY: The patient states that she is still short of breath. The patient states that her throat is dry, but the patient states she does not feel much better. However, the patient is not requiring BiPAP and not becoming dyspneic with conversation. The patient denies any hemoptysis, nausea, vomiting or diarrhea. OBJECTIVE: VITAL SIGNS: Temperature is 97.9, pulse 67, respiratory rate 18, 95% on room air. HEENT: Normocephalic, atraumatic. Eyes nonicteric. NECK: Supple, nontender, trachea midline. CARDIOVASCULAR: S1, S2 audible, regular rate and rhythm. LUNGS: Decreased breath sounds bilaterally with mild expiratory wheezes. ABDOMEN: Soft, nontender. Bowel sounds present. EXTREMITIES: No clubbing, cyanosis or edema. MUSCULOSKELETAL: Without acute deformity. CENTRAL NERVOUS SYSTEM: Cranial nerves 2-12 grossly intact. No focal neurologic deficits. IMPRESSION: 1. Chronic obstructive pulmonary disease. 2. Congestive heart failure. 3. Small pleural effusions with dependent compressive atelectasis. PLAN: Part of the patient's respiratory distress is from anxiety; therefore, we will start 0.5 mg of Xanax b.i.d. Agree with continued diuretic therapy. The patient should remain on Solu-Medrol 60 mg b.i.d. There is no need for antibiotics at this time. Continue current management. Any changes will be based upon progression of illness. Thank you very much. Gutierrez Veliz DO [place], [place] PROGRESS NOTE NAME: LUCY ZULETA UNIT #: [id number] ROOM: 407 DOCTOR: BINA VELIZ DO BIRTHDATE: [birth year] KEVIN DANIELS MD CM:KEMAR [phone] BINA VELIZ DO 08/30/18 0224 interface
[~2018-08-27 05:37] MED LIST changes: +ADVAIR 250/501 EA INH; +ANTI-DIARRHEA2 MG PO; +AVEENO ANTI IT T; +BENGAY ULTRA S1 EACH T; +CYMBALTA30 MG PO; +FUROSEMIDE40 MG PO; +GERI-MOX ANTAC355 ML PO; +HYDROXYZINE HCL25 MG PO; +LOTRISONE 0.05%45 GM T; +LOTRISONE CREAM15 GM T; +MEDROL DOSEPAK4 MG PO; +MIRALAX119 GM PO; +MOBIC7.5 MG PO; +NORCO 5-325 TA1 EACH PO; +OMEPRAZOLE D/R20 MG PO; +OMEPRAZOLE MAGN20 MG PO; +PREDNISONE10 MG PO; +ROBAXIN-750750 MG PO; +SEROQUEL25 MG PO; +TRAMADOL HCL50 MG PO; +TRAZODONE50 MG PO; +TUMS200 MG PO; +TYLENOL325 M1 PO; +ZOFRAN4 MG PO
[2018-08-27 06:18] LABS: BASO # 0.1 10*3/uL (0.0-0.1); BASO % 0.5 % (0.0-1.0); EOS # 0.3 10*3/uL (0.0-0.4); HEMOGLOBIN 12.9 g/dl (12.0-16.0); LYMPH # 1.3 10*3/uL (1.3-4.4); LYMPH % 7.7 % (27.0-41.0); MEAN CELL VOLUME 106.8 fl (81.0-99.0); MEAN CORPUSCULAR HGB 33.6 pg (27.0-31.0); MEAN CORPUSCULAR HGB CONC 31.5 g/dl (33.0-37.0); MEAN PLATELET VOLUME 9.9 fl (9.6-12.3); MONO % 6.2 % (3.0-9.0); NEUT # 13.3 10*3/uL (2.3-7.9); NEUT % 81.9 % (47.0-73.0); PLATELET COUNT AUTOMATED 231 10*3/uL (130-400); RED BLOOD COUNT 3.84 10*6/uL (4.10-5.10); RED CELL DISTRI WIDTH 13.3 % (0-14.5); WHITE BLOOD COUNT 16.2 10*3/uL (4.8-10.8)
[2018-08-27 06:33] LABS: ALBUMIN 3.3 gm/dl (3.1-4.5); ALKALINE PHOSPHATASE 92 U/L (45-117); BUN 17 mg/dl (7-24); CHLORIDE 105 mmol/L (98-107); CREATININE 0.83 mg/dL (0.55-1.02); SGOT/AST 5 IU/L (3-35); SGPT/ALT 25 U/L (12-78); SODIUM 140 mmol/L (136-145)
[2018-08-27 06:34] LABS: ABG BASE EXCESS -0.2 mmol/L (-2.0-2.0); ABG HCO3 25.1 mmol/l (22-26); ABG O2 SATURATION 84.8 % (95-97); ARTERIAL BLOOD GAS PCO2 44.8 mmHg (35-45); ARTERIAL BLOOD GAS PH 7.364 (7.35-7.45); ARTERIAL BLOOD GAS PO2 50.7 mmHg (80-90)
[2018-08-27 06:37] LABS: TROPONIN I 0.101 ng/ml (<0.045)
--- NOTE | 2018-08-27 06:44 | NUR ---
DR. EM NOTIFIED OF THE CRITICAL TROP ON THE PATIENT. NO CONCERNS AT THIS TIME.
[2018-08-27 07:02] LABS: ACT PARTIAL THROMBO TIME 29.1 SECONDS (20.0-32.1); INTERNATIONAL NORM RATIO 0.9 (2.0-3.5)
--- NOTE | 2018-08-27 08:50 | NUR ---
A 87YO FEMALE, admitted to , under the services of SUMMER Cage DO with a diagnosis of CHF/HCAP/SEPSIS. Chief complaint is LABORED BREATHING SINCE THIS MORNING WITH LOW O2 SATURATION. Patient arrived via stretcher from ER. Monitor applied. Initial assessment completed. Vital signs taken and recorded. SUMMER CAGE DO notified of admission to the unit. Orders received. See assessment for past medical history, medications and allergies. Patient and/or family oriented to unit. [facility] visitation policy reviewed. Clothing/patient valuable form completed. LISA ZENDEJAS
--- NOTE | 2018-08-27 09:19 | NUR ---
DR. ALLRED NOTIFIED OF MOST RECENT TROPONIN I RESULT.
--- NOTE | 2018-08-27 09:22 | NUR ---
PATIENT ARRIVED FROM ER. PATIENT PLACED BACK ON BIPAP 12/8 BACK UP RATE OF 8 FIO2 40%. SPO2 92% HR 102.
[2018-08-27] MEDS ORDERED: [UNRECOGNIZED DRUG - OTHER] T (10:50)
[2018-08-27] MEDS ORDERED: ENSURE PLUS 23237 ML PO (10:58)
--- NOTE | 2018-08-27 10:59 | NUR ---
MED REC UPDATED/CORRECTED USING INFORMATION PROVIDED BY ARBEN KAYE PRINTED CHART RECORDS
--- NOTE | 2018-08-27 11:18 | NUR ---
DR. FOSS'S ANSWERING SERVICE NOTIFIED OF CONSULT.
--- NOTE | 2018-08-27 11:19 | NUR ---
DR. DANIELS IS COMING IN TO SEE THE PATIENT CONSULT.
--- NOTE | 2018-08-27 11:23 | NUR ---
DR. FOSS NOTIFIED OF CONSULT. OBTAINED ORDERS FOR 81MG ASPIRIN DAILY, NPO EXCEPT FOR MEDS AFTER MIDNIGHT, ECHOCARDIOGRAM IN AM, CALL IF PATIENT NOT IMPROVING WITH LASIX.
--- NOTE | 2018-08-27 12:28 | NUR ---
DR. FOSS NOTIFIED OF MOST RECENT TROPONIN 1; OBTAINED ORDER FOR LOVENOX 1MG/KG/HR Q12HR START NOW.
[2018-08-28] VITALS: BP 140/82
[2018-08-28 06:57] LABS: BASO % 0.1 % (0.0-1.0); LYMPH # 0.4 10*3/uL (1.3-4.4); LYMPH % 5.9 % (27.0-41.0); MEAN CORPUSCULAR HGB 33.8 pg (27.0-31.0); MEAN CORPUSCULAR HGB CONC 32.6 g/dl (33.0-37.0); MEAN PLATELET VOLUME 9.8 fl (9.6-12.3); MONO # 0.4 10*3/uL (0.1-1.0); MONO % 5.2 % (3.0-9.0); NEUT # 6.6 10*3/uL (2.3-7.9); NEUT % 88.3 % (47.0-73.0); PLATELET COUNT AUTOMATED 164 10*3/uL (130-400); RED BLOOD COUNT 3.14 10*6/uL (4.10-5.10); RED CELL DISTRI WIDTH 13.2 % (0-14.5); WHITE BLOOD COUNT 7.5 10*3/uL (4.8-10.8)
[2018-08-28 07:08] LABS: ALKALINE PHOSPHATASE 64 U/L (45-117); BUN 14 mg/dl (7-24); CHLORIDE 101 mmol/L (98-107); CREATININE 0.72 mg/dL (0.55-1.02); PHOSPHOROUS 3.1 mg/dL (2.5-4.9); POTASSIUM 3.3 mmol/L (3.5-5.1); SGOT/AST 9 IU/L (3-35); SGPT/ALT 19 U/L (12-78); SODIUM 139 mmol/L (136-145)
[2018-08-28 07:27] LABS: HEMATOCRIT 32.5 % (37.0-47.0); HEMOGLOBIN 10.6 g/dl (12.0-16.0); MEAN CELL VOLUME 103.5 fl (81.0-99.0)
[2018-08-28 08:00] VITALS: BP 143/61
--- NOTE | 2018-08-28 08:59 | NUR ---
Patient comes in from [facility] where she is penitentiary care. She is ok to return when medically stable for discharge.
--- NOTE | 2018-08-28 09:28 | NUR ---
DR. FOSS'S OFFICE CALLED AT THIS TIME CONCERNING PATIENT BEING NPO FOR A POSSIBLE STRESS TEST. WINDOWS SERVER ADMINISTRATOR STATED SHE WOULD SEND DR. FOSS A MESSAGE.
[2018-08-28 12:00] VITALS: BP 136/62
[2018-08-28 16:00] VITALS: BP 152/77
--- NOTE | 2018-08-28 16:00 | NUR ---
REFUSES BIPAP AT THIS TIME.
--- NOTE | 2018-08-28 19:20 | NUR ---
DR CH AWARE OF PATIENT REQUESTING SOMETHING FOR HEARTBURN. ORDER TAKEN
[2018-08-28 20:00] VITALS: BP 151/78
--- NOTE | 2018-08-28 20:00 | NUR ---
MEDICATED WITH PRN TUMS FOR C/O HEARTBURN. WILL MONITOR
--- NOTE | 2018-08-28 21:13 | NUR ---
MEDICATED WITH PRN VISTARIL FOR C/O ANXIOUSNESS. WILL MONITOR
[2018-08-29] VITALS: BP 116/74
--- NOTE | 2018-08-29 00:58 | NUR ---
PATIENT RESTING WITH EYES CLOSED. BIPAP INTACT. PREVIOUS MEDICATION SEEMS EFFECTIVE
--- NOTE | 2018-08-29 04:08 | NUR ---
DR CH AWARE OF 6 BEAT RUN OF VTA. PATIENT SLEEPING. DENIES CHEST PAIN OR PRESSURE. DR CH STATES TO JUST CALL CARDIOLOGY IN THE MORNING.
--- NOTE | 2018-08-29 04:54 | NUR ---
PATIENT RESTING IN BED WITH NO S/S OF DISTRESS. BED IN LOWEST POSITION,CALL LIGHT IN REACH
--- NOTE | 2018-08-29 05:09 | NUR ---
PATIENT HAD RUN OF SVT. DR CH AWARE AND STATES TO TELL CARDIOLODY DURING THE DAY. PATIENT SLEEPING AND DENIES ANY SYMPTOMS. WILL MONITOR
[2018-08-29 07:18] LABS: BASO % 0.1 % (0.0-1.0); HEMATOCRIT 38.1 % (37.0-47.0); HEMOGLOBIN 12.4 g/dl (12.0-16.0); LYMPH # 0.9 10*3/uL (1.3-4.4); LYMPH % 9.8 % (27.0-41.0); MEAN CELL VOLUME 103.5 fl (81.0-99.0); MEAN CORPUSCULAR HGB 33.7 pg (27.0-31.0); MEAN CORPUSCULAR HGB CONC 32.5 g/dl (33.0-37.0); MEAN PLATELET VOLUME 9.6 fl (9.6-12.3); MONO # 0.6 10*3/uL (0.1-1.0); MONO % 6.8 % (3.0-9.0); NEUT # 7.5 10*3/uL (2.3-7.9); NEUT % 82.9 % (47.0-73.0); PLATELET COUNT AUTOMATED 193 10*3/uL (130-400); RED BLOOD COUNT 3.68 10*6/uL (4.10-5.10); RED CELL DISTRI WIDTH 13.2 % (0-14.5)
--- NOTE | 2018-08-29 07:25 | NUR ---
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
[2018-08-29 07:36] LABS: ALBUMIN 3.1 gm/dl (3.1-4.5); ALKALINE PHOSPHATASE 67 U/L (45-117); BUN 15 mg/dl (7-24); CHLORIDE 106 mmol/L (98-107); CREATININE 0.71 mg/dL (0.55-1.02); POTASSIUM 4.1 mmol/L (3.5-5.1); SGOT/AST 28 IU/L (3-35); SGPT/ALT 23 U/L (12-78); SODIUM 139 mmol/L (136-145); TOTAL PROTEIN 6.5 gm/dL (6.4-8.2)
--- NOTE | 2018-08-29 08:30 | NUR ---
Nursing screen received and chart review completed. Patient was admitted with CHF and HCAP. SHe is prison care at [facility] and will return upon d/c when medically stable. Encourage daily ROM and ADLs. Should patient have a change in status consider OT referral. Thank you. Marie Butler Otr/L
--- NOTE | 2018-08-29 09:00 | NUR ---
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
[2018-08-29 12:00] VITALS: BP 154/79
--- NOTE | 2018-08-29 13:48 | NUR ---
PHYSICAL THERAPY Nursing screen received. Chart review complete. PAtient is fdc care, recommend normal daily mobility with nursing prn. If difficulties with mobilty arise, please order PT. Thank you. Mecca Harris,PT
[2018-08-29 16:00] VITALS: BP 186/88
[2018-08-29 20:00] VITALS: BP 166/79
[2018-08-30] VITALS: BP 173/91
--- NOTE | 2018-08-30 01:06 | NUR ---
PATIENT RESTING IN BED WITH BIPAP INTACT. NO NEEDS MADE. BED IN LOWEST POSITION, CALL LIGHT IN REACH
--- NOTE | 2018-08-30 02:36 | NUR ---
DR CH AWARE OF PATIENT'S ABDOMEN STILL BLEEDING FROM A HEMATOMA SITE FROM A LOVENOX INJECTION. ALSO MADE AWARE OF PATIENT HAVING DUPLICATE PLAVIX ORDERS ON THE JUN.
--- NOTE | 2018-08-30 03:10 | NUR ---
PT. REFUSES BIPAP AT THIS TIME.
--- NOTE | 2018-08-30 06:20 | NUR ---
SCANT BLEEDING NOTED TO BANDAID IN LEFT LOWER ABDOMENT. PATIENT DENIES PAIN AT SITE.
[2018-08-30 08:00] VITALS: BP 160/90
--- NOTE | 2018-08-30 08:20 | NUR ---
Patient updated clinicals faxed to [facility] for review. 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
--- NOTE | 2018-08-30 09:10 | NUR ---
INFORMED CONSENT OBTAINED FOR A LEXISCAN STRESS TEST WITH DR. FOSS. RESTING EKG SINUS TACHYTCARDIA WITH MULTIFOCAL PVC'S. HT RT OF 96, WITH A BP OF 128/88. BREATH SOUNDS CLEAR ENRIKE, WITH A SPO2 OF 92% VIA 4LNC. COMPLETED ONE MINUTE OF A LEXISCAN PROTOCOL RECEIVING LEXISCAN 0.4 MG OVER 10 SECONDS. C/O A HEADACHE AND SOB THAT WAS RELEIVED IN RECOVERY. POX 92% DURING STRESS TEST. HAD A PEAK HT RT OF 89, WITH A BP OF 138/84. LAST RECOVERY HT RT OF 100, WITH A BP OF 144/84. AWAITING NUCLEAR IMAGING IN STABLE CONDITION.
--- NOTE | 2018-08-30 09:10 | NUR ---
PT OFF FLOOR FOR STRESS TEST.
[2018-08-30 12:00] VITALS: BP 160/70
[2018-08-30 16:00] VITALS: BP 141/64
[2018-08-30 20:00] VITALS: BP 155/78
--- NOTE | 2018-08-30 23:46 | NUR ---
PATIENT REFUSING BIPAP
[2018-08-31] VITALS: BP 157/87
--- NOTE | 2018-08-31 02:11 | NUR ---
24 HR chart check completed.
--- NOTE | 2018-08-31 07:45 | NUR ---
PT PLACED ON BEDPAN AND REMOVED AND IN BED. GOOD AMOUNT URINE BUT MISSED BEDPAN, CLEANED UP AND TURNED. FEET UP ON PILLOW OFF THE BED. NO C/O AT THIS TIME. CALL LIGHT IN REACH. OXYGEN IN USE.
--- NOTE | 2018-08-31 09:15 | NUR ---
RESTING IN BED. OXYGEN IN USE. NO C/O AT THIS TIME. CALL LIGHT IN REACH.
--- NOTE | 2018-08-31 11:37 | NUR ---
EDI FOSS REGARDING FAMILY WONDERING IF SHE COULD EAT. OK TO EAT AND HE WILL BE UP IN A LITTLE BIT TO TALK WITH PT AND FAMILY.
[2018-08-31 12:00] VITALS: BP 151/54
--- NOTE | 2018-08-31 14:00 | NUR ---
SITTING UP IN CHAIR WITH VISITOR AT HER SIDE. NO C/O AT THIS TIME. CALL LIGHT IN REACH.
[2018-08-31 16:00] VITALS: BP 154/84
--- NOTE | 2018-08-31 16:00 | NUR ---
TOLERATED ROUTINE MEDS WITH NO PROBLEM. VISITOR AT HER SIDE. NO C/O AT THIS TIME. CALL LIGHT IN REACH.
[2018-08-31 20:00] VITALS: BP 152/89
--- NOTE | 2018-08-31 21:46 | NUR ---
PATIENT MEDICATED WITH RESTORIL PER PRN ORDER FOR C/O INABILITY TO SLEEP. SEE EMAR. REINFORCED USE OF CALL LIGHT.
--- NOTE | 2018-08-31 23:31 | NUR ---
PATIENT REFUSING BIPAP
[2018-09-01] VITALS: BP 140/65
--- NOTE | 2018-09-01 07:10 | NUR ---
PT ASSISTED UP TO BSC AND BACK TO BED. RESP-EASY AND REGULAR. OXYGEN IN USE. NO C/O AT THIS TIME. CALL LIGHT IN REACH. SEE SHIFT ASSESSMENT. BED ALARM ON.
[2018-09-01 08:00] VITALS: BP 140/70
--- NOTE | 2018-09-01 10:00 | NUR ---
TOLERATED ROUTINE MEDS WITH NO PROBLEM. NO C/O AT THIS TIME. PT AMBULATORY TO BATHROOM AND BACK TO BED WITH STUDENT NURSE. CALL LIGHT IN REACH.
[2018-09-01] MEDS ORDERED: ATORVASTATIN CA40 M1 PO (11:11)
[2018-09-01] MEDS ORDERED: TRAMADOL HCL50 MG PO (11:11)
[2018-09-01] MEDS ORDERED: HYDROCODONE-AC1 EAC1 PO (11:11)
[2018-09-01] MEDS ORDERED: METOPROLOL SUCC50 M1 PO (11:11)
[2018-09-01] MEDS ORDERED: IMDUR SA30 MG PO (11:11)
[2018-09-01] MEDS ORDERED: ALPRAZOLAM0.5 M3 PO (11:11)
--- NOTE | 2018-09-01 12:00 | NUR ---
RESTING IN BED. RESP-EASY AND REGULAR. CALL LIGHT IN REACH. OXYGEN IN USE.
--- NOTE | 2018-09-01 12:19 | NUR ---
CALLED DR. FOSS OFFICE MADE AWARE PT BEING DISCHARGED IF ANY ORDERS. THEY WILL SEND A MESSAGE
--- NOTE | 2018-09-01 13:56 | NUR ---
SPOKE WITH MIREILLE AT [facility] GAVE REPORT.
--- NOTE | 2018-09-01 13:58 | NUR ---
[facility] HER TO ESCORT PT VIA BED. Discharge instructions reviewed with patient/AMBULANCE. Patient receptive and verbalizes understanding. Follow-up care arranged. Written instructions given to patient/AMBULANCE. AURELIA ANTHONY
== END 2018-09-01 13:58 | DRG 291 ==
LOC: ED 05:37 → EDHOLD 06:46 → 4E 06:46
PROVIDERS: Registered Nurse; Student in an Organized Health Care Education/Training Program; ADMIT Internal Medicine
PROC: 5A09357 Assistance with Respiratory Ventilation, Less than 24 Consecutive Hours, Continuous Positive Airway Pressure (ICD-10-PCS; principal; 2018-08-27)
PROC: 5A09357 Assistance with Respiratory Ventilation, Less than 24 Consecutive Hours, Continuous Positive Airway Pressure (ICD-10-PCS; 2018-08-28)
PROC: 5A09357 Assistance with Respiratory Ventilation, Less than 24 Consecutive Hours, Continuous Positive Airway Pressure (ICD-10-PCS; 2018-08-29)
PROC: 3E073KZ Introduction of Other Diagnostic Substance into Coronary Artery, Percutaneous Approach (ICD-10-PCS; 2018-08-30)
PROC: 4A02XM4 Measurement of Cardiac Total Activity, External Approach (ICD-10-PCS; 2018-08-30)
PROC: 5A09357 Assistance with Respiratory Ventilation, Less than 24 Consecutive Hours, Continuous Positive Airway Pressure (ICD-10-PCS; 2018-08-30)
DX: I11.0 Hypertensive heart disease with heart failure (principal); J96.21 Acute and chronic respiratory failure with hypoxia; R65.11 Systemic inflammatory response syndrome (SIRS) of non-infectious origin with acute organ dysfunction; I16.1 Hypertensive emergency; E44.0 Moderate protein-calorie malnutrition; J98.11 Atelectasis; I24.8 Other forms of acute ischemic heart disease; I50.33 Acute on chronic diastolic (congestive) heart failure; I25.10 Atherosclerotic heart disease of native coronary artery without angina pectoris; F41.1 Generalized anxiety disorder; J43.9 Emphysema, unspecified; Z66 Do not resuscitate; Z51.5 Encounter for palliative care; Z96.649 Presence of unspecified artificial hip joint; F32.9 Major depressive disorder, single episode, unspecified; D64.9 Anemia, unspecified; Z96.1 Presence of intraocular lens; D75.89 Other specified diseases of blood and blood-forming organs; Z99.81 Dependence on supplemental oxygen; Z88.2 Allergy status to sulfonamides; Z87.01 Personal history of pneumonia (recurrent); Z85.3 Personal history of malignant neoplasm of breast; Z98.42 Cataract extraction status, left eye; Z98.41 Cataract extraction status, right eye; Z87.891 Personal history of nicotine dependence; Z90.11 Acquired absence of right breast and nipple; Z86.73 Personal history of transient ischemic attack (TIA), and cerebral infarction without residual deficits; Z79.899 Other long term (current) drug therapy; Z79.02 Long term (current) use of antithrombotics/antiplatelets; Z68.26 Body mass index [BMI] 26.0-26.9, adult

== ENCOUNTER 2018-09-22 08:54 | Inpatient (IN) | payer OTHER, MEDICAID ==
[~2018-09-22] VITALS: Ht 154.9 cm; Wt 54.1 kg
[2018-09-22] VITALS (7 sets, daily range): BP systolic 117–162; BP diastolic 62–85
--- NOTE | ~2018-09-22 | CON ---
[place], [place] REPORT OF CONSULTATION NAME: LUCY ZULETA UNIT #: [id number] ROOM: 528 DOCTOR: JEREMIAH HANKS MD BIRTHDATE: [birth year] DOS: 09/23/2018 REASON FOR CONSULTATION: Congestive heart failure. HISTORY OF PRESENT ILLNESS: The patient is an 87-year-old patient with history of coronary artery disease, peripheral vascular disease, valvular heart disease, anemia, who was presented from a custodial for shortness of breath. For the past one month, she has been having problems with shortness of breath associated with some dry cough. She admitted for congestive heart failure and cardiac catheterization for further recommendations. She has been complaining of some fatigue and weakness. At the time of examination, the patient is alert, oriented. Denies any chest pain. Breathing is much better. No nausea, vomiting or diarrhea. No fever and chills. No cough or hemoptysis. She was in the hospital last she had an echo and a stress test. At that time, echo showed EF of 50% with valvular heart disease. The stress test was slightly abnormal and cardiac catheterization was recommended, but she declined. In the Emergency Room, she received IV Lasix and IV steroids. REVIEW OF SYSTEMS: Review of 10 systems negative except as mentioned above. PAST MEDICAL HISTORY: 1. Coronary artery disease. 2. Valvular heart disease. 3. COPD. 4. Chronic pain. 5. Peripheral vascular disease. 6. History of TIA. 6. Anemia. 7. Anxiety. PAST SURGICAL HISTORY: History of mastectomy, resection of a large bowel, hip replacement and cataract surgery. SOCIAL HISTORY: The patient does not smoke or drink, does not use illicit drugs. She used to smoke remotely. FAMILY HISTORY: Nil contributory due to her age. Both mom and dad . ALLERGIES: Reviewed. HOME MEDICATIONS: Reviewed. PERTINENT HOME MEDICATIONS: Cardiac medications include atorvastatin, Lasix, isosorbide, metoprolol and Plavix. PHYSICAL EXAMINATION: VITAL SIGNS: Blood pressure 115/63, pulse 71, respiration 20, weight 61 kilos, BMI of 25.4. GENERAL: Alert, comfortable, in no acute distress. HEAD AND NECK: Neck supple, no distended neck veins. The patient had left [place], [place] REPORT OF CONSULTATION NAME: LUCY ZULETA UNIT #: [id number] ROOM: 528 DOCTOR: JEREMIAH HANKS MD BIRTHDATE: [birth year] carotid bruit. HEENT: Pupils are round and equal. No jaundice. Tongue was moist and pharynx clear. CHEST: Symmetrical, nontender. LUNGS: Few scattered rhonchi. The patient had a MediPort on the left chest. ABDOMEN: Benign, nontender. HEART: Regular rhythm, no S3. Grade 2/6 systolic murmur. EXTREMITIES: Showed trace to 1+ edema. Distal pulses palpable. SKIN: Warm and dry. No cyanosis, no clubbing. RECTAL: Deferred. GENITOURINARY: Deferred. NEUROLOGIC: The patient is alert with good. No focal neurologic deficit. REVIEW OF THE DIAGNOSTIC TESTS: EKG, labs, and imaging studies reviewed. EKG, is normal sinus rhythm, no acute ischemic changes. Hemoglobin 11.1 and creatinine is normal. Troponins are normal. Echo from 08/2018 showed EF 50%. Moderate mitral regurgitation and tricuspid regurgitation and moderate pulmonary hypertension. Potassium is 3.5, magnesium 1.9. The patient had a 12-beat wide complex rhythm, asymptomatic. IMPRESSION: 1. Acute on chronic diastolic heart failure. 2. Brief wide complex tachycardia, patient asymptomatic. 3. Coronary artery disease. 4. Pulmonary hypertension. 5. Mitral regurgitation. 6. Peripheral vascular disease. 7. Anemia. 8. History of transient ischemic attack. 9. Chronic pain. 10. History of breast cancer. RECOMMENDATIONS: 1. Continue IV diuretics for the next 24-48 hours. 2. Supplement potassium to keep her potassium greater than 4. 3. Continue to watch her heart rate and blood pressures and arrhythmias. 4. No further cardiac testing. 5. Attempted discharge in the next 24-48 hours. 6. No family at bedside at the time of examination. [place], [place] REPORT OF CONSULTATION NAME: LUCY ZULETA UNIT #: [id number] ROOM: 528 DOCTOR: JEREMIAH HANKS MD BIRTHDATE: [birth year] JEREMIAH HANKS MD CM:CONSTR:REPORT OF CONSULTATION 1622 09/24/18 0152 interface
--- NOTE | ~2018-09-22 | EKG ---
[place], [place] ELECTROCARDIOGRAM REPORT NAME: LUCY ZULETA UNIT #: [id number] ROOM: 528 DOCTOR: BRITTANY DRAFT REPORT BIRTHDATE: [birth year] [facility] Test Date: 2018-09-22 Test Time: 15:09:02 Pat Name: LUCY ZULETA Department: Room: 528 Gender: F Brass Finisher: CASSIA : 1930 Requested By: DEBI BALBUENA Order Number: [id number] Reading MD: Amara Toro Measurements Intervals [place] Rate: 81 P: 91 GA: 109 QRS: 6 QRSD: 89 T: 223 QT: 385 QTc: 447 Interpretive Statements Sinus rhythm Ventricular premature complex Short [place] interval Probable left atrial enlargement LVH with secondary repolarization abnormality Anterior Q waves, possibly due to LVH Compared to ECG 08/27/2018 12:08:01 Ventricular premature complex(es) now present Short GA interval now present Q waves now present Sinus tachycardia no longer present Atrial premature complex(es) no longer present Electronically Signed On 09-24-2018 12:48:41 PDT by Amara Toro CM:EKGRPT:ELECTROCARDIOGRAM REPORT [id number] 1248 DEBI SOTO DRAFT REPORT DEBI BALBUENA MD
--- NOTE | ~2018-09-22 | CON ---
[place], [place] REPORT OF CONSULTATION NAME: LUCY ZULETA UNIT #: [id number] ROOM: 528 DOCTOR: KEVIN HART MD BIRTHDATE: [birth year] DOS: 09/23/2018 PULMONARY CONSULTATION EVALUATION AND MANAGEMENT REASON FOR CONSULTATION: For the assessment for acute exacerbation of COPD. HISTORY OF PRESENT ILLNESS: This 87 years old elderly female patient known to me with past history of congestive heart failure, COPD and other problem, has been staying at the [facility], presented to the hospital on 09/22/2018. The patient reported symptoms of increased shortness of breath, which has been occurring with nonproductive cough, which has been noted gradually worsened. The patient denies any symptoms of chest pain with that. Shortness of breath noted as a major symptom. REVIEW OF SYSTEMS: CONSTITUTIONAL: Fatigue and tiredness noted. Denies symptoms of fever or chills. EYES: Denies any burning, redness, or tenderness. EARS, NOSE, THROAT SYMPTOMS: Denies sore throat, hoarseness, otalgia, postnasal drainage or epistaxis. CARDIOVASCULAR: The patient noted with some edema of the lower extremity, denied palpitation or anginal pain. GENITOURINARY: No dysuria, suprapubic pain, or hematuria. MUSCULOSKELETAL: No acute joint pain, redness, or tenderness. SKIN: Denies lesions or rashes. CENTRAL NERVOUS SYSTEM: Denies dizziness, headache, diplopia, or syncopal episode. Remaining systems were reviewed. They were noted all negative. PAST MEDICAL HISTORY: 1. Noted with last hospitalization in this hospital discharge on 09/01/2018 for the medical management of acute exacerbation of chronic obstructive pulmonary disease, acute congestive heart failure, diastolic dysfunction, which was resolved prior to the discharge. The pleural fluid was also noted on chest x-ray which was resolved markedly prior to the discharge. 2. History of longstanding COPD. 3. Congestive heart failure, diastolic dysfunction. 4. Coronary artery disease. 5. History of breast cancer in the right side with past lumpectomy several years ago. PAST SURGICAL HISTORY: 1. Reported cataract extraction with lens implantation. 2. Left hip surgery. 3. Resection of the large bowel. 4. Left thoracentesis in 2018. 5. Fiberoptic bronchoscopy in 2018. 6. Lumpectomy and surgery for the breast cancer in the right side many years ago. [place], [place] REPORT OF CONSULTATION NAME: LUCY ZULETA UNIT #: [id number] ROOM: 528 DOCTOR: KEVIN HART MD BIRTHDATE: [birth year] SOCIAL HISTORY: Resident of a nursing facility for a long period of time. There is no history of alcohol use or illicit drug use. The patient has been noted with tobacco use in the past, which was discontinued many years ago. FAMILY HISTORY: Unknown. CURRENT MEDICATIONS: Administered noted, Imdur, Lipitor, Meloxicam, Cymbalta, ferrous sulfate, Plavix, Lovenox for DVT prophylaxis, omeprazole, Mucinex, metoprolol tartrate, trazodone, Seroquel, Keppra, Pulmicort Respules, albuterol sulfate, IV Lasix 40 mg b.i.d., BuSpar, and some other p.r.n. medications. ALLERGIES: Drug allergy history of the patient was noted as ALLERGY TO SULFA DRUGS. PHYSICAL EXAMINATION: GENERAL: This is an 87-year-old female patient currently comfortable, resting on the bed without any acute distress. On assessment height of 5 feet 1 inch, weight 134 pounds, BMI 24. VITAL SIGNS: Normal temperature since admission last 24 hours, respiratory rate between 18-24, heart rate 71-70, blood pressure 127/68-133/70. The pulse oxygen saturation recorded on 4 liters nasal cannula as 96% saturation. HEENT: Examination shows head was atraumatic. Eyes nonicterus. NECK: Supple. CARDIOVASCULAR: S1, S2 audible. LUNGS: The patient noted generalized reduction of the breath sounds were noted bilaterally. ABDOMEN: Soft, nontender, flat. Bowel sounds present. EXTREMITIES: Noted 1+ pitting edema. MUSCULOSKELETAL: The patient was noted without any acute deformities. CENTRAL NERVOUS SYSTEM: The patient's cranial nerves 2-12 intact. VISIBLE SKIN: Without lesions or rashes. LABORATORY DATA: Chest x-ray that was done yesterday was noted with basilar area of small atelectasis with increased interstitial marking finding consistent with acute early congestive heart failure. The PT and PTT that was done yesterday was noted as normal. The CMP that was done yesterday noted normal BUN and creatinine. ProBNP was elevated at 19,000. CMP yesterday, normal BUN and creatinine. Albumin 3.0. CMP completed this morning was noted with normal potassium and BUN and creatinine. Urine culture was noted no bacterial growth, preliminary. IMPRESSION: 1. The patient has been currently admitted to the hospital and was noted with findings consistent with acute congestive heart failure with diastolic dysfunction. 2. History of coronary artery disease. 3. Chronic obstructive pulmonary disease. The patient does not seem to have acute exacerbation. There was no evidence of significant pleural fluid noted on the current chest x-ray at this time. [place], [place] REPORT OF CONSULTATION NAME: LUCY ZULETA UNIT #: [id number] ROOM: 528 DOCTOR: JEREMIAH OLIVAS MD,KEVIN BIRTHDATE: [birth year] PLAN OF MEDICAL MANAGEMENT: Congestive heart failure to be optimized. The patient receiving IV diuretics. Monitor kidney function and electrolytes. Respiratory symptoms have been decreased since admission as per the patient. Usual medical management of the patient's COPD will be continued. She would not require any use of corticosteroids, aggressive bronchodilators administration. Other therapy, plan and management. Additional treatment changes will be made based on the progression of the illness. KEVIN DANIELS MD CM:CONSTR:REPORT OF CONSULTATION 1609 09/23/18 0363 interface
--- NOTE | ~2018-09-22 | PR ---
[place], [place] PROGRESS NOTE NAME: LUCY ZULETA UNIT #: [id number] ROOM: 528 DOCTOR: JEREMIAH OLIVAS MD,KEVIN BIRTHDATE: [birth year] DOS: 09/27/2018 SUBJECTIVE: The patient apparently seen and examined in [id number] encounter, history was confirmed. Physical examination performed. Labs were reviewed. Note done by the medical care manager, was approved. The patient has been noted comfortable at this time, resting. The patient is comfortable on the bed. Denies any symptoms of acute shortness of breath, coughing, sputum expectoration, chest pain, fever or chills. PHYSICAL EXAMINATION: VITAL SIGNS: For the patient, which has been recorded showed normal temperature, respiratory rate 16, heart rate 72, blood pressure 105/57. Pulse oxygen saturation on 4 liters cannula 94% saturation. HEENT: Examination shows head was atraumatic. Eyes nonicterus. NECK: Supple. CARDIOVASCULAR: S1, S2 audible. LUNGS: The patient was noted without any crackles, rhonchi, or wheezing at this time. ABDOMEN: Soft, nontender. Bowel sounds present. EXTREMITIES: No new change. IMPRESSION: The patient with marked improvement in respiratory symptoms with resolution of the congestive heart failure and improved respiratory symptom. PLAN OF TREATMENT: The patient could be discharged on oral medication to the nursing facility. No additional changes in treatment needs to be made today. KEVIN DANIELS MD CM:PNTRANS [phone] KEVIN OLIVAS MD 10/04/18 1047 interface
--- NOTE | ~2018-09-22 | PR ---
[place], [place] PROGRESS NOTE NAME: LUCY ZULETA UNIT #: [id number] ROOM: 528 DOCTOR: JEREMIAH OLIVAS MD,KEVIN BIRTHDATE: [birth year] DOS: 09/26/2018 SUBJECTIVE: The patient was independently seen and examined, [id number] encounter, history was performed. The physical examination was performed. The labs data was reviewed. Assessment and management today was personally completed. Note done by the medical appliance maker was approved. The patient has been noted comfortable at this time. Denies any shortness of breath, coughing, chest pain, or sputum expectoration. She was assessed for possible discharge to hospitalist service per primary care attending. PHYSICAL EXAMINATION: VITAL SIGNS: For the patient is resting comfortably noted normal temperature, respiratory rate of 17, heart rate of 77, blood pressure 130/58. Pulse ox saturation on 4 liters maintained 99% saturation. HEENT: Head was atraumatic. Eyes nonicterus. NECK: Supple. CARDIOVASCULAR: S1, S2 audible. LUNGS: No wheezing or crackles. ABDOMEN: Soft, nontender. EXTREMITIES: No acute edema. IMPRESSION: 1. Stable respiratory status, resolving. 2. Acute congestive heart failure with frequent hospitalization. 3. Elderly age. PLAN OF TREATMENT: No change in pulmonary standpoint. I agree with discharge to hospice services. Continue other comfort measures. Discharge planning for her primary care attending. KEVIN DANIELS MD CM:PNTRANS [id number] KEVIN OLIVAS MD 09/26/18 1427 interface
--- NOTE | ~2018-09-22 | PR ---
[place], [place] PROGRESS NOTE NAME: LUCY ZULETA UNIT #: [id number] ROOM: 528 DOCTOR: JEREMIAH HANKS MD BIRTHDATE: [birth year] DOS: 09/23/2018 CARDIOLOGY PROGRESS NOTE REASON FOR VISIT: CHF and tachycardia. HISTORY OF PRESENT ILLNESS: The patient is feeling better. Denies any chest pain, shortness of breath. No palpitations or dizziness. No PND, no orthopnea, no fever and chills. REVIEW OF SYSTEMS: Review of the 8 systems negative except as mentioned above. RHYTHM STRIPS: The patient in sinus rhythm, occasional PVCs. PHYSICAL EXAMINATION: VITAL SIGNS: Blood pressure 121/61, pulse 69, respiratory rate 22, weight 56.5 kilos. GENERAL: Alert, comfortable, in no acute distress. HEENT: Pupils are round and equal. No jaundice. NECK: Supple. The patient has elevated JVD. No carotid bruit. CHEST: Symmetrical, nontender. LUNGS: Few scattered rhonchi. Fair air entry bilaterally. HEART: Regular rhythm, no S3, grade 2/6 systolic murmur. ABDOMEN: Benign. Bowel sounds normal. EXTREMITIES: Showed trace to 1+ edema. Distal pulses palpable. SKIN: Warm and dry. No cyanosis, no clubbing. RECTAL: Deferred. GENITOURINARY: Deferred. MEDICATIONS AND LABS: Reviewed. IMPRESSION: 1. Acute on chronic diastolic heart failure, EF 50%. 2. Pulmonary hypertension. 3. Valvular heart disease, mitral regurgitation and tricuspid regurgitation. 4. Peripheral vascular disease. 5. History of transient ischemic attack. RECOMMENDATIONS: 1. Continue current medications. 2. Blood pressure and heart rate are stable. 3. The patient's possible discharge tomorrow. 4. No family at bedside at the time of examination. [place], [place] PROGRESS NOTE NAME: LUCY ZULETA UNIT #: [id number] ROOM: 528 DOCTOR: JEREMIAH HANKS MD BIRTHDATE: [birth year] JEREMIAH HANKS MD CM:PNTRANS [phone] JEREMIAH HANKS MD 09/25/18105 interface
--- NOTE | ~2018-09-22 | EKG ---
[place], [place] ELECTROCARDIOGRAM REPORT NAME: LUCY ZULETA UNIT #: [id number] ROOM: 528 DOCTOR: BRITTANY DRAFT REPORT BIRTHDATE: [birth year] [facility] Test Date: 2018-09-22 Test Time: 12:36:39 Pat Name: LUCY ZULETA Department: Room: 528 Gender: F Glazier Artist: : 1930 Requested By: DEBI BALBUENA Order Number: [id number] Reading MD: Amara Toro Measurements Intervals [place] Rate: 78 P: 84 WV: 114 QRS: 21 QRSD: 87 T: 232 QT: 416 QTc: 474 Interpretive Statements Sinus rhythm Multiple ventricular premature complexes Borderline short [place] interval Probable LVH with secondary repol abnrm Compared to ECG 08/27/2018 12:08:01 Ventricular premature complex(es) now present Sinus tachycardia no longer present Atrial premature complex(es) no longer present Electronically Signed On 09-24-2018 12:48:15 PDT by Amara Toro CM:EKGRPT:ELECTROCARDIOGRAM REPORT [id number] 1248 DEBI SOTO DRAFT REPORT DEBI BALBUENA MD
--- NOTE | ~2018-09-22 | PR ---
[place], [place] PROGRESS NOTE NAME: LUCY ZULETA UNIT #: [id number] ROOM: 528 DOCTOR: JEREMIAH OLIVAS MD,KEVIN BIRTHDATE: [birth year] DOS: 09/24/2018 PULMONARY PROGRESS NOTE SUBJECTIVE: The patient is noted comfortable at this time, without any acute distress this morning of assessment. She has been noted with shortness of breath, which is improving. There are no symptoms of coughing stated. There are no symptoms of chest pain. OBJECTIVE: VITAL SIGNS: Which have been recorded show the temperature noted as normal, respiratory rate recorded as 18, heart rate 73, blood pressure 142/70. The pulse oxygen saturation recorded as 97% on four liters nasal cannula. HEENT: Examination shows head is atraumatic. Eyes nonicterus. NECK: Supple. CARDIOVASCULAR: S1 and S2 audible. LUNGS: Noted without any wheezing. Occasional crackles. ABDOMEN: Soft, nontender. Bowel sounds present. EXTREMITIES: Without any clubbing or cyanosis. Edema of the lower extremity is present, which is improving. LABORATORY DATA: BMP this morning was done with normal BUN and creatinine, CO2 is 32. IMPRESSION: Resolving acute congestive heart failure at the present time with current medical management and reduction of respiratory symptoms was noted gradually. Shortness of breath has been improving. PLAN: Continue diuretic and bronchodilators. If the patient continues to do well with current medical management, possible consider discharge back to the [facility] facility in the morning. KEVIN DANIELS MD CM:PNTRANS [id number] KEVIN OLIVAS MD 09/24/18 1435 interface
--- NOTE | ~2018-09-22 | PR ---
[place], [place] PROGRESS NOTE NAME: LUCY ZULETA UNIT #: [id number] ROOM: 528 DOCTOR: DEMARIO HOWARD,JEREMIAH BIRTHDATE: [birth year] DOS: 09/25/2018 REASON FOR VISIT: Congestive heart failure, valvular heart disease. HISTORY OF PRESENT ILLNESS: The patient is feeling better. Denies any chest pain, or shortness of breath. No PND, no orthopnea. No nausea or vomiting. The patient expressed her opinion that she does not want any invasive testing. Hence, her code status was changed to DNRCC. REVIEW OF SYSTEMS: Eight systems negative except as mentioned above. RHYTHM STRIPS: The patient in sinus rhythm. The patient had a brief nonsustained ventricular tachycardia, asymptomatic. PHYSICAL EXAMINATION: VITAL SIGNS: Blood pressure 106/62, pulse 72, respiratory rate 16. GENERAL: Alert, comfortable, in no acute distress. HEENT: Pupils are round and equal, no jaundice. NECK: Supple. The patient had elevated neck veins. No carotid bruit. CHEST: Symmetrical, nontender. LUNGS: Few scattered rhonchi. HEART: Regular rhythm, no S3, grade 2/6 systolic murmur. ABDOMEN: Benign, nontender. Bowel sounds normal. EXTREMITIES: Showed trace edema. Distal pulses palpable. SKIN: Warm and dry. No cyanosis, no clubbing. RECTAL: Deferred. GENITOURINARY: Deferred. DIAGNOSTIC TESTS: Her labs and rhythm strips reviewed. IMPRESSION: 1. Acute on chronic diastolic heart failure, EF 50%. 2. Valvular heart disease, mitral regurgitation, triscuspid regurgitation. 3. Pulmonary hypertension. 4. Wide complex tachycardia, positive nonsustained ventricular tachycardia, the patient asymptomatic. 5. Peripheral vascular disease. 6. Transient ischemic attack. 7. Mild hypokalemia. RECOMMENDATIONS: 1. Continue her current medication. 2. Potassium being supplemented. 3. The patient wished to be DNRCC with no further testing. 4. Blood pressure and heart rates are stable. 5. Continue her diuretics and beta blockers. 6. There is no family at bedside. 7. Cardiology will see as needed. 8. The patient can be discharged from the hospital. [place], [place] PROGRESS NOTE NAME: LUCY ZULETA UNIT #: [id number] ROOM: 528 DOCTOR: JEREMIAH HANKS MD BIRTHDATE: [birth year] JEREMIAH HANKS MD CM:PNTRANS [id number] JEREMIAH HANKS MD 09/26/18 0257 interface
--- NOTE | ~2018-09-22 | PR ---
[place], [place] PROGRESS NOTE NAME: LUCY ZULETA UNIT #: [id number] ROOM: 528 DOCTOR: JEREMIAH OLIVAS MD,KEVIN BIRTHDATE: [birth year] DOS: 09/25/2018 PULMONARY PROGRESS NOTE SUBJECTIVE: The patient is noted comfortable at this time, resting on the bed this morning. Shortness of breath has improved markedly. Denies symptoms of fever, chills or cough. The patient is comfortably resting on the bed this morning of assessment. OBJECTIVE: VITAL SIGNS: Normal temperature, respiratory rate 16, heart rate 72, blood pressure 102/62 to 130/68. The pulse oxygen saturation recorded on 4 liters nasal cannula was 94% saturation. HEENT: Shows head was atraumatic, eyes nonicterus. NECK: Supple. CARDIOVASCULAR: S1 and S2 audible. LUNGS: The patient was noted without any wheezing or crackles at the present time. ABDOMEN: Soft, nontender. Bowel sounds present. EXTREMITIES: No acute change. IMPRESSION: Stable respiratory status noted at the present time, responding to treatment with significant improvement and resolution of acute congestive heart failure noted clinically. 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 KEVIN DANIELS MD CM:PNTRANS 1301 [id number] KEVIN OLIVAS MD 09/26/18 0048 interface
--- NOTE | ~2018-09-22 | EKG ---
[place], [place] ELECTROCARDIOGRAM REPORT NAME: LUCY ZULETA UNIT #: [id number] ROOM: 528 DOCTOR: BRITTANY DRAFT REPORT BIRTHDATE: [address] [facility] Test Date: 2018-09-22 Test Time: 08:58:07 Pat Name: LUCY ZULETA Department: Room: 528 Gender: F Emr Specialist: : 1930 Requested By: DEBI BALBUENA Order Number: [id number] Reading MD: Amara Toro Measurements Intervals [place] Rate: 92 P: 80 LA: 115 QRS: 35 QRSD: 84 T: 241 QT: 344 QTc: 426 Interpretive Statements Sinus rhythm Atrial premature complex Borderline short [place] interval Probable anterior infarct, age indeterminate Compared to ECG 08/27/2018 12:08:01 Myocardial infarct finding now present Sinus tachycardia no longer present Electronically Signed On 09-24-2018 12:46:57 PDT by Amara Toro CM:EKGRPT:ELECTROCARDIOGRAM REPORT [id number] 1246 DEBI SOTO DRAFT REPORT DEBI BALBUENA MD
[~2018-09-22 08:54] MED LIST changes: +ALPRAZOLAM0.5 M3 PO; +ATORVASTATIN CA40 M1 PO; +ENSURE PLUS 23237 ML PO; +IMDUR SA30 MG PO; +METOPROLOL SUCC50 M1 PO; +[UNRECOGNIZED DRUG - OTHER] T
--- NOTE | 2018-09-22 09:18 | NUR ---
PT DEMANDING THAT MEDIPORT BE USED FOR BLOOD DRAW. RATIONAL EXPLAINED TO PT THAT BLOOD CULTURES CANNOT BE DRAWN THROUGH MEDIPORT WHICH HAS BEEN ACCESSED PROIR TO ARRIVAL TO FACILITY. PT AGREEABLE BUT STATES "IF I GET BRUISES LIKE THIS (REFERRING TO EXISTING BRUISES TO LEFT ARM) I'M GOING TO [facility].
[2018-09-22 09:33] LABS: BASO % 0.3 % (0.0-1.0); EOS # 0.2 10*3/uL (0.0-0.4); EOS % 1.3 % (1.0-4.0); HEMATOCRIT 34.6 % (37.0-47.0); HEMOGLOBIN 11.1 g/dl (12.0-16.0); LYMPH # 0.5 10*3/uL (1.3-4.4); LYMPH % 4.6 % (27.0-41.0); MEAN CELL VOLUME 104.8 fl (81.0-99.0); MEAN CORPUSCULAR HGB 33.6 pg (27.0-31.0); MEAN CORPUSCULAR HGB CONC 32.1 g/dl (33.0-37.0); MONO # 0.7 10*3/uL (0.1-1.0); MONO % 5.8 % (3.0-9.0); NEUT % 87.6 % (47.0-73.0); PLATELET COUNT AUTOMATED 218 10*3/uL (130-400); RED CELL DISTRI WIDTH 13.5 % (0-14.5); WHITE BLOOD COUNT 11.5 10*3/uL (4.8-10.8)
[2018-09-22 09:51] LABS: ALKALINE PHOSPHATASE 65 U/L (45-117); BUN 17 mg/dl (7-24); CHLORIDE 106 mmol/L (98-107); CREATININE 0.89 mg/dL (0.55-1.02); SGOT/AST 22 IU/L (3-35); SGPT/ALT 32 U/L (12-78); SODIUM 139 mmol/L (136-145); TOTAL PROTEIN 6.2 gm/dL (6.4-8.2)
[2018-09-22 09:52] LABS: TROPONIN I 0.022 ng/ml (<0.045)
[2018-09-22 09:54] LABS: BILIRUBIN NEGATIVE (NEGATIVE); BLOOD NEGATIVE (NEGATIVE); CLARITY CLEAR (CLEAR); COLOR YELLOW (YELLOW); GLUCOSE NEGATIVE (NEGATIVE); KETONE NEGATIVE (NEGATIVE); LEUKO ESTERASE NEGATIVE (NEGATIVE); NITRITE NEGATIVE (NEGATIVE); UROBILINOGEN 0.2 E.U./dl (0.2-1.0)
--- NOTE | 2018-09-22 09:56 | NUR ---
SPOKE WITH ADITYA FROM [facility] REGARDING MEDIPORT. STATES IT WAS PLACED SOMMETIME LAST WEEK FOR BLOOD DRAW. RN WILL DC PORT
[2018-09-22 10:16] LABS: BACTERIA 1+
--- NOTE | 2018-09-22 10:30 | NUR ---
SMALL SCABBED AREA TO TIP TO 3RD TOE, LEFT FOOT. PT STATES FROM [facility].
[2018-09-22] MEDS ORDERED: ADV 500/50 INH (13:45)
[2018-09-22] MEDS ORDERED: METOPROLOL TART50 M1 PO (13:50)
[2018-09-22] MEDS ORDERED: BUSPIRONE HCL10 MG PO (13:51)
--- NOTE | 2018-09-22 13:53 | NUR ---
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 Patient ok to return when medically stable for discharge.
--- NOTE | 2018-09-22 13:57 | NUR ---
PT ADMITTED TO [address] [facility]. DR. CASTANEDA NOTIFIED OF ADMISSION AND MEDICATION RECONCILIATION.PT ATE LUNCH AND PT IS SLEEPING AT THIS TIME.
--- NOTE | 2018-09-22 16:52 | NUR ---
CALLED CONSULT TO DR. FOSS AND DOCTOR DANIELS PER DR. LEONEL CASTRO.
--- NOTE | 2018-09-22 19:45 | NUR ---
PRN ROBAXIN GIVEN FOR PT COMPLAINTS OF MUSCLE ACHES AND SPASMS. CALL LIGHT WITHIN REACH, WILL MONITOR
--- NOTE | 2018-09-22 21:00 | NUR ---
PRN MEDICATIN APPEARS EFFECTIVE, PT SLEEPING
[2018-09-23] VITALS: BP 133/70
--- NOTE | 2018-09-23 06:17 | NUR ---
PRN ROBAXIN GIVEN FOR PT COMPLAINTS OF MUSCLE SPASMS AND ACHES. CALL LIGHT WITHIN REACH, WILL MONITOR
[2018-09-23 06:37] LABS: ALBUMIN 2.9 gm/dl (3.1-4.5); ALKALINE PHOSPHATASE 66 U/L (45-117); BUN 16 mg/dl (7-24); CHLORIDE 103 mmol/L (98-107); CREATININE 0.73 mg/dL (0.55-1.02); PHOSPHOROUS 2.9 mg/dL (2.5-4.9); POTASSIUM 3.5 mmol/L (3.5-5.1); SGOT/AST 12 IU/L (3-35); SGPT/ALT 28 U/L (12-78); SODIUM 140 mmol/L (136-145); TOTAL PROTEIN 5.9 gm/dL (6.4-8.2)
[2018-09-23 08:00] VITALS: BP 122/80
[2018-09-23 12:00] VITALS: BP 115/63
--- NOTE | 2018-09-23 12:27 | NUR ---
NOTIFIED OF 12 BEAT RUN OF [facility]; PAGED ALSO. DOCUMENTED STRIP IN CHART. PATIENT WAS ASLEEP AT THE TIME.
--- NOTE | 2018-09-23 13:10 | NUR ---
PT MEDICATED WITH TYLENOL AT THIS TIME UPON REQUEST FOR COMPLAINTS OF HEADACHE. WILL MONITOR FOR EFFECTIVENESS.
--- NOTE | 2018-09-23 14:30 | NUR ---
PER PATIENT, TYLENOL EFFECTIVE AT THIS TIME. NO FURTHER COMPLAINTS.
[2018-09-23 16:00] VITALS: BP 120/70
[2018-09-23 20:00] VITALS: BP 133/68
--- NOTE | 2018-09-23 21:59 | NUR ---
PRN ROBAXIN GIVEN FOR PT COMPLAINTS OF MUSCLE ACHES AND SPASMS. CALL LIGHT WITHIN REACH, WILL MONITOR
--- NOTE | 2018-09-23 22:30 | NUR ---
PRN MEDICATION APPEARS EFFECTIVE, PT SLEEPING
[2018-09-24] VITALS: BP 124/64
--- NOTE | 2018-09-24 02:44 | NUR ---
24 HR chart check completed.
--- NOTE | 2018-09-24 05:26 | NUR ---
NOTIFIED DR. SON AT THIS TIME THAT PATIENT IS COMPLAINING OF SOMETHING IN HER EYE. PATIENTS EYE NOT RED, SHE STATES SHE JUST FEELS SOMETHING IN THERE AND ITS IRRITATTING. PATIENT STATED SHE DID HAVE EYELINER ON YESTERDAY.
[2018-09-24 07:08] LABS: BUN 14 mg/dl (7-24); CHLORIDE 101 mmol/L (98-107); CREATININE 0.79 mg/dL (0.55-1.02); POTASSIUM 3.6 mmol/L (3.5-5.1); SODIUM 142 mmol/L (136-145)
[2018-09-24 08:00] VITALS: BP 142/70
--- NOTE | 2018-09-24 08:00 | NUR ---
PATIENT MEDICATED WITH TYLENOL AT THIS TIME FOR COMPLAINTS OF HEADACHE. WILLL MONITOR.
--- NOTE | 2018-09-24 09:15 | NUR ---
PER PATIENT, TYLENOL HAS BEEN EFFECTIVE. NO FURTHER COMPLAINTS AT THIS TIME.
[2018-09-24 12:00] VITALS: BP 121/61
[2018-09-24 16:00] VITALS: BP 123/65
--- NOTE | 2018-09-24 19:05 | NUR ---
BEDSIDE RESPORT OBTAINED FROM AME-RN. PATIENT IS AWAKE AND ALERT, VOICED NO COMPLAINTS AT THIS TIME. NO DISTRESS NOTED, RESP ARE ERND ON 4L NC. BED IS LOCKED IN LOWEST POSITION, ALARM MAINTAINED. CALL LIGHT WITHIN REACH.
[2018-09-24 20:00] VITALS: BP 124/72
[2018-09-25] VITALS: BP 126/69
--- NOTE | 2018-09-25 02:00 | NUR ---
PATIENT SLEEPING, EYES CLSOED. CALL LIGHT WITHIN REACH
--- NOTE | 2018-09-25 03:41 | NUR ---
PATIENT MEDICATED WITH ROBAXIN FOR C/O PAIN 07/19. WILL MONITOR
--- NOTE | 2018-09-25 04:41 | NUR ---
ROBAXIN APPEARS EFFECTIVE. PATIENT ASLEEP, EYES CLOSED. CALL LIGHT WITHIN REACH.
[2018-09-25 06:36] LABS: BASO % 0.5 % (0.0-1.0); EOS # 0.2 10*3/uL (0.0-0.4); EOS % 3.4 % (1.0-4.0); HEMATOCRIT 38.9 % (37.0-47.0); HEMOGLOBIN 12.5 g/dl (12.0-16.0); LYMPH # 0.8 10*3/uL (1.3-4.4); LYMPH % 13.3 % (27.0-41.0); MEAN CELL VOLUME 104.6 fl (81.0-99.0); MEAN CORPUSCULAR HGB 33.6 pg (27.0-31.0); MEAN CORPUSCULAR HGB CONC 32.1 g/dl (33.0-37.0); MEAN PLATELET VOLUME 8.6 fl (9.6-12.3); MONO # 0.6 10*3/uL (0.1-1.0); MONO % 9.5 % (3.0-9.0); NEUT # 4.5 10*3/uL (2.3-7.9); NEUT % 72.8 % (47.0-73.0); PLATELET COUNT AUTOMATED 236 10*3/uL (130-400); RED BLOOD COUNT 3.72 10*6/uL (4.10-5.10); RED CELL DISTRI WIDTH 13.8 % (0-14.5); WHITE BLOOD COUNT 6.1 10*3/uL (4.8-10.8)
[2018-09-25 06:48] LABS: BUN 15 mg/dl (7-24); CHLORIDE 99 mmol/L (98-107); CREATININE 0.78 mg/dL (0.55-1.02); POTASSIUM 3.4 mmol/L (3.5-5.1); SODIUM 140 mmol/L (136-145)
--- NOTE | 2018-09-25 07:36 | NUR ---
24 HR CHART CHECK COMPLETE.
[2018-09-25 08:40] VITALS: BP 130/68
--- NOTE | 2018-09-25 09:18 | NUR ---
PHYSICAL THERAPY PAtient with pending d/c this date. Mecca Harris,PT
--- NOTE | 2018-09-25 09:21 | NUR ---
Patient pleasantly declined Occupational THerapy evaluation stating she would wait until she returned to [facility] today to determine if she needed any therapy. Marie Butler OTR/l
--- NOTE | 2018-09-25 10:32 | NUR ---
PHYSICAL THERAPY PAtient and nursing reports she is possible d/c this date. 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 Thank you for this referral. Mecca Harris,PT
--- NOTE | 2018-09-25 11:58 | NUR ---
FRANCISCO TITUS WOOD FLOORING SPECIALIST MADE AWARE OF 20 BEAT OF VTACH. SPOKE WITH PT, STATED SHE WANTED TO BECOME A DNR-CC AND WANTED HOSPICE. ATTEMPTED TO NOTIFY CARIOLOGY VIA TELEPHONE. MD NOT IN OFFICE, FRANCISCO TITUS STATED IT WAS OKAY TO NOTIFY THEM ON ROUNDS.
[2018-09-25 12:00] VITALS: BP 106/62
--- NOTE | 2018-09-25 12:15 | NUR ---
PT STATES THAT "IM DONE, I DO NOT WANT ANYTHING DONE IF MY HEART STOPS" TALKED WITH PATIENT SHE UNDERSTANDS CHANGING HER CODE STATUS TO A COMFORT CARE WOULD MEAN THAT IF SHE WOULD STOP BRAETHING OR HER HEART WOULD STOP THAT NO LIFE SAVING MEASURES WOULD BE DONE, SHE STATES UNDERSTANDING AND WOULD LIKE TO CHANGE CODE STATUS TO COMFORT CARE. FRANCISCO TITUS AWARE
--- NOTE | 2018-09-25 13:34 | NUR ---
NOTIFIED DR. HANKS OF 20 BEATS OF VTACH AND THAT PT CAN GO HOME FROM HIS POV AND MAY RETURN BACK HOME WITH ORIGINAL MEDICATIONS. NOTIFIED OF CODE STATUS CHANGE WELL.
--- NOTE | 2018-09-25 14:06 | NUR ---
PT IS ALF CARE AT [facility] AND WILL RETURN WHEN MEDICALLY STABLE. WILL CONTINUE TO FOLLOW.
--- NOTE | 2018-09-25 14:41 | NUR ---
Updated clinicals faxed to [facility] for review. 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
[2018-09-25 16:00] VITALS: BP 112/53
--- NOTE | 2018-09-25 16:00 | NUR ---
MONITORING WAS DISCONTINUED AT THIS TIME. PT IS NOW A MED SURG PATIENT.
--- NOTE | 2018-09-25 19:05 | NUR ---
BEDSIDE REPORT OBTAIEND FROM [facility]. PATIENT RESTING IN BED, VOICED NO COMPLAINTS. NO DISTRESS NOTED, RESP AR EERDN ON ROOM AIR. BED IS LOCKED IN LOWEST POSITION, ALARM MAINTAINED. [facility] CATH PATENT FOR STRAW/CLEAR URINE. CALL LIGHT WITHIN REACH
[2018-09-25 20:00] VITALS: BP 112/66
--- NOTE | 2018-09-25 23:45 | NUR ---
PATIENT SLEEPING, EYES CLOSED. CALL LIGHT WITHIN REACH
[2018-09-26] VITALS: BP 116/68
[2018-09-26 07:30] VITALS: BP 130/58
--- NOTE | 2018-09-26 07:35 | NUR ---
PHYSICAL THERAPY PAtient not discharged. Hospice being discussed. Mecca Harris,PT
--- NOTE | 2018-09-26 08:44 | NUR ---
Received order for hospice, [facility] is hospice agency for [place] residents. Contacted facility and faxed referral.
[2018-09-26 11:27] VITALS: BP 100/50
--- NOTE | 2018-09-26 14:35 | NUR ---
PT WILL RETURN TO [facility] ON DISCHARGE. WILL CONTINUE TO FOLLOW.
[2018-09-26 16:00] VITALS: BP 111/54
[2018-09-26 20:00] VITALS: BP 118/66; BP 195/92
[2018-09-27] VITALS: BP 117/58
[2018-09-27 06:48] LABS: ALBUMIN 2.8 gm/dl (3.1-4.5); ALKALINE PHOSPHATASE 79 U/L (45-117); BUN 18 mg/dl (7-24); CHLORIDE 100 mmol/L (98-107); CREATININE 0.79 mg/dL (0.55-1.02); POTASSIUM 3.6 mmol/L (3.5-5.1); SGOT/AST 9 IU/L (3-35); SGPT/ALT 19 U/L (12-78); SODIUM 139 mmol/L (136-145); TOTAL PROTEIN 6.3 gm/dL (6.4-8.2)
[2018-09-27 08:13] VITALS: BP 115/70
[2018-09-27] MEDS ORDERED: K-TAB20 MEQ PO (10:01)
[2018-09-27] MEDS ORDERED: NORCO 5-325 TA1 EACH PO (10:01)
--- NOTE | 2018-09-27 11:04 | NUR ---
patient is discharged to return to [facility], transportation scheduled for between 12 - 12:30 with [facility] ambulance. [place], nursing/index clerk and daughter Darby notified.
[2018-09-27 11:26] VITALS: BP 105/57
--- NOTE | 2018-09-27 12:30 | NUR ---
Discharge instructions reviewed with patient/family. Patient receptive and verbalizes understanding. Pt returned to [facility]. Report given to receiving nurse. instructor weaving removed and mediport deaccessed. Pt transported via ambulance. [facility] FELIX
== END 2018-09-27 13:01 | DRG 190 ==
LOC: ED 08:54 → EDHOLD 10:03 → 5E 10:03
PROVIDERS: Emergency Medicine; Internal Medicine; Registered Nurse; ADMIT Internal Medicine
DX: J44.1 Chronic obstructive pulmonary disease with (acute) exacerbation (principal); I50.33 Acute on chronic diastolic (congestive) heart failure; E44.0 Moderate protein-calorie malnutrition; J96.11 Chronic respiratory failure with hypoxia; I47.2 Ventricular tachycardia; D53.9 Nutritional anemia, unspecified; R73.9 Hyperglycemia, unspecified; E66.3 Overweight; G89.29 Other chronic pain; Z66 Do not resuscitate; Z51.5 Encounter for palliative care; I08.1 Rheumatic disorders of both mitral and tricuspid valves; I27.20 Pulmonary hypertension, unspecified; I73.9 Peripheral vascular disease, unspecified; E87.6 Hypokalemia; Z96.649 Presence of unspecified artificial hip joint; Z96.1 Presence of intraocular lens; G40.909 Epilepsy, unspecified, not intractable, without status epilepticus; F41.1 Generalized anxiety disorder; I25.119 Atherosclerotic heart disease of native coronary artery with unspecified angina pectoris; F32.9 Major depressive disorder, single episode, unspecified; R80.9 Proteinuria, unspecified; R82.71 Bacteriuria; Z99.81 Dependence on supplemental oxygen; Z88.2 Allergy status to sulfonamides; Z85.3 Personal history of malignant neoplasm of breast; Z86.73 Personal history of transient ischemic attack (TIA), and cerebral infarction without residual deficits; Z87.01 Personal history of pneumonia (recurrent); Z98.42 Cataract extraction status, left eye; Z98.41 Cataract extraction status, right eye; Z90.11 Acquired absence of right breast and nipple; Z87.891 Personal history of nicotine dependence; Z79.899 Other long term (current) drug therapy; Z79.02 Long term (current) use of antithrombotics/antiplatelets; Z68.25 Body mass index [BMI] 25.0-25.9, adult